=== PATIENT | female | born 1965 | race Caucasian/White ===

== ENCOUNTER 2020-07-14 08:24 | Outpatient (CLI) | payer OTHER, SELFPAY | END 2020-07-14 08:25 | disposition home or self-care (01) | LOC: ANHCOVIDVC 08:24 | PROVIDERS: PCP Obstetrics & Gynecology Gynecology | DX: Z23 Encounter for immunization (principal) | CPT/HCPCS: 0001A; 91300 ==

== ENCOUNTER 2020-08-04 08:04 | Outpatient (CLI) | payer OTHER, SELFPAY | END 2020-08-04 08:05 | disposition home or self-care (01) | LOC: ANHCOVIDVC 08:04 | PROVIDERS: PCP Obstetrics & Gynecology Gynecology | DX: Z23 Encounter for immunization (principal) | CPT/HCPCS: 0002A; 91300 ==

== ENCOUNTER 2021-05-09 13:45 | Outpatient (CLI) | payer OTHER, SELFPAY ==
--- NOTE | 2021-05-09 14:49 | ECG_ITS ---
Measurements Intervals [place] Rate: 74 P: 37 CT: 183 QRS: -15 QRSD: 98 T: 81 QT: 379 QTc: 422 Interpretive Statements SINUS RHYTHM EARLY PRECORDIAL R/S TRANSITION VOLTAGE CRITERIA FOR LVH MINIMAL Q WAVES- HIGH LATERAL LEADS BASELINE ARTIFACT- I, II, III, AVR, AVL, AVF, V4-V6 BORDERLINE ECG Electronically Signed On 05-09-2021 15:09:42 [employer] CONSULTANT by Erik Dubois D.O.
[2021-05-09 15:29] LABS: Basophils Absolute Auto 0.1 K/mm3 (0.0-0.1); Basophils Percent Auto 0.8 % (0.2-1.2); Eosinophils Absolute Auto 0.4 K/mm3 (0-0.3); Eosinophils Percent Auto 3.3 % (0-4.4); Hematocrit 42.1 % (37.0-47.0); Hemoglobin 13.1 g/dL (12.0-15.0); Immature Granulocyte Absolute 0.03 K/mm3 (0.00-0.031); Immature Granulocyte Percent A 0.2 % (0-0.5); Lymphocytes Absolute Auto 4.59 K/mm3 (0.9-3.2); Lymphocytes Percent Auto 35.7 % (18.3-44.2); Mean Corpuscular HGB Conc 31.1 g/dl (32-36); Mean Corpuscular Hemoglobin 26.6 pg (26-34); Mean Corpuscular Volume 85.4 fl (80-100); Mean Platelet Volume 9.9 fl (7.4-10.4); Monocytes Absolute Auto 0.9 K/mm3 (0.1-0.6); Monocytes Percent Auto 6.7 % (2.6-8.5); Neutrophils Absolute Auto 6.8 K/mm3 (1.3-6.7); Neutrophils Percent Auto 53.3 % (45.5-73.1); Platelet Count Result 317 k/mm3 (150-375); Red Blood Count 4.93 M/mm3 (4.2-5.4); Red Cell Distribution Width 14.6 % (11.5-14.5); White Blood Count 12.8 K/mm3 (4.5-10.0)
[2021-05-09 15:35] LABS: Anion Gap 7 mmol/L (8-16); Blood Urea Nitrogen 20 mg/dL (7-17); Calcium 8.9 mg/dL (8.4-10.2); Carbon Dioxide 31 mmol/L (22-30); Chloride 101 mmol/L (98-107); Estimated Glomerular Filt Rate 51; Glucose 97 mg/dL (65-110); Sodium 139 mmol/L (137-145)
[2021-05-09 20:38] LABS: Hemoglobin A1C 5.6 % (<5.7)
[2021-05-09 22:04] LABS: Urine Cotinine NEGATIVE
== END 2021-05-09 13:46 | disposition home or self-care (01) ==
LOC: ANHSURGERY 13:51
PROVIDERS: PCP Physician Assistant; Visit Provider Orthopaedic Surgery
DX: Z01.818 Encounter for other preprocedural examination (principal); M17.0 Bilateral primary osteoarthritis of knee
CPT/HCPCS: 80048; 80307; 82040; 83036; 85025; 86850; 86900; 86901; 87070; 93005

== ENCOUNTER 2021-05-10 09:32 | Outpatient (CLI) | payer OTHER, SELFPAY ==
[2021-05-10 10:12] LABS: Basophils Absolute Auto 0.1 K/mm3 (0.0-0.1); Eosinophils Absolute Auto 0.4 K/mm3 (0-0.3); Hematocrit 43.9 % (37.0-47.0); Hemoglobin 13.7 g/dL (12.0-15.0); Immature Granulocyte Absolute 0.03 K/mm3 (0.00-0.031); Immature Granulocyte Percent A 0.2 % (0-0.5); Lymphocytes Absolute Auto 4.07 K/mm3 (0.9-3.2); Lymphocytes Percent Auto 32.8 % (18.3-44.2); Mean Corpuscular HGB Conc 31.2 g/dl (32-36); Mean Corpuscular Hemoglobin 26.9 pg (26-34); Mean Corpuscular Volume 86.1 fl (80-100); Monocytes Absolute Auto 0.7 K/mm3 (0.1-0.6); Monocytes Percent Auto 5.4 % (2.6-8.5); Neutrophils Absolute Auto 7.1 K/mm3 (1.3-6.7); Neutrophils Percent Auto 57.6 % (45.5-73.1); Platelet Count Result 338 k/mm3 (150-375); Red Cell Distribution Width 14.6 % (11.5-14.5); White Blood Count 12.4 K/mm3 (4.5-10.0)
[2021-05-10 10:21] LABS: Alanine Aminotransferase 21 U/L (4-35); Albumin Level 4.2 g/dL (3.5-5.1); Alkaline Phosphatase 81 U/L (38-126); Anion Gap 5 mmol/L (8-16); Aspartate Amino Transferase 28 U/L (14-36); Bilirubin,Total 0.5 mg/dL (0.2-1.3); Blood Urea Nitrogen 18 mg/dL (7-17); Carbon Dioxide 30 mmol/L (22-30); Chloride 105 mmol/L (98-107); Estimated Glomerular Filt Rate 57; Glucose 101 mg/dL (65-110); Potassium 3.9 mmol/L (3.4-5.0); Sodium 140 mmol/L (137-145)
== END 2021-05-10 09:33 | disposition home or self-care (01) ==
LOC: ANHLAB 09:35
PROVIDERS: PCP Physician Assistant; Visit Provider Physician Assistant
DX: D72.829 Elevated white blood cell count, unspecified (principal); E87.6 Hypokalemia
CPT/HCPCS: 36415; 80053; 85025

== ENCOUNTER 2021-05-15 08:24 | Outpatient (RCR) | payer OTHER, SELFPAY ==
--- NOTE | 2021-05-15 09:21 | PCPTNOTE ---
Tania was here today for pre-operative education for TKA currently scheduled for 05/17/21. We discussed expectations for pre-op/post-op while in the hospital, expectations for hospital stay, physical and occupational therapy while in the hospital and outpatient physical therapy. She demonstrated and stated understanding. We discussed and she demonstrated pre and post operative exercises for TKA. She came in with the Total Knee Education book and stated she had read the book and was already doing the exercises. She had no further questions.
== END 2021-05-15 16:17 | disposition home or self-care (01) ==
LOC: ANHPT 08:24
PROVIDERS: PCP Physician Assistant; Referring Provider Orthopaedic Surgery; Visit Provider Orthopaedic Surgery
DX: M17.11 Unilateral primary osteoarthritis, right knee (principal)
CPT/HCPCS: 99199

== ENCOUNTER 2021-05-17 01:47 | Day surgery (SDC) | payer OTHER, SELFPAY ==
[2021-05-09 14:08] VITALS: BP 146/97; PULSE 74; RESP 16; TEMP 37.2; O2SAT 96; BMI 34.6
--- NOTE | 2021-05-09 14:20 | PC.NURSE ---
Report to the Outpatient Waiting Room, entrance under the green pavilion located off [facility], at time __10:00AM___ on date _05/17/21____. OR Time: ___12:00PM . - You will be asked a series of questions to screen for COVID 19 for your protection. - A mask is required within the hospital. - No visitors are allowed at this time. Preoperative COVID Testing Requirements: No COVID Test needed if: (proof is required; if not received patient will have Rapid Test prior to entry) - Patient has received COVID Vaccine at least 14 days prior to procedure date or - Patient has positive COVID test result within last 90 days of surgery date. COVID Test needed if above criteria is not met If not COVID vaccinated a COVID test must be conducted within 72 hours of surgery and patient is asked to isolate self from time of testing until procedure. You will go to the [facility] for your COVID testing. The [facility] Testing site is located at the corner of [address] [facility]. You will only be called if COVID results are positive and your surgeon may reschedule your elective surgery date. Patients may have clear liquids (water, carbonated beverages, clear teas, apple juice) until 3 hours prior to surgery with a maximum of 20 ounces. - No food from midnight until time of surgery - Infants may have breast milk until 4 hours before surgery, formula 6 hours prior to surgery. - Children will be allowed to drink immediately following surgery. If applicable, please bring a bottle or sippy cup to assist with drinking. Juice, water, soda, and popsicles are readily available. For infants on formula, please bring formula the day of surgery. Pacifiers are allowed. Take the following medications with a SIP of water the morning of surgery: ___BUPROPION, LEVOTHYROXINE, PAROXETINE Medications to discontinue per physician HOLD ALEVE (ALL NSAIDS) 7 DAYS PRE-OP Date to take last dose___05/10/21 Please no make-up, nail malawian, hairspray, perfume, deodorant, or body powder the day of surgery. No jewelry (including any body piercings) or valuables the day of surgery, leave them at home. Please take a shower or bath the night before, or the morning of, surgery with an antibacterial soap. Wear comfortable, loose fitting clothing. Children are encouraged to wear pajamas. - Jewelry must be removed prior to entering the operating room. Rings and piercings that are not removed may be cut off. - The hospital will not accept responsibility for valuables. - Please leave all valuables, including medications, at home the day of surgery. If you are going home after surgery, a licensed auto haulaway driver must drive you home. - NO public transportation without another adult. - We recommend that an adult stay with you for 24 hours following discharge. - We also recommend that you do not drive, make important decision, drink alcoholic beverages, or take any drugs that were not prescribed by your health care provider for at least 24 hours after your discharge time. For Pediatric surgeries, we recommend two adults accompany the child home (only one inside the building at this time). Follow any additional instructions given to you from your surgeon. Telephone instructions given to _PATIENT and asked if any additional questions and then verbalized understanding. Patient advised to call surgeon office or pre surgery nurse liaison [phone] if any additional questions.
--- NOTE | 2021-05-16 16:11 | WPDANESEPPF ---
Anes - Initial Pre Proc Eval Procedure: Operation Date: 05/17/21 12:00 Proposed Procedures p Right Total Knee Arthroplasty, Left Knee Cortisone Injection - Andrea Hester MD Date/Time: 05/16/21 16:11 Surgeon: Andrea Hester MD Pre Op Diagnosis: severe OA bilat knees Patient Data Age: 55 Gender: F Height: 1.73 m Weight: 103.3 kg Last Vital Signs Temp 37.2 C 05/09/21 14:08 Pulse 74 05/09/21 14:08 Resp 16 05/09/21 14:08 BP 146/97 H 05/09/21 14:08 Pulse Ox 96 05/09/21 14:08 Allergies Allergy/AdvReac Type Severity Reaction Status Date / Time erythromycin base Allergy Unknown Hives Verified 05/17/21 10:16 KATARZYNA Inhibitors AdvReac ABD PAIN, Verified 05/17/21 10:16 N/V Home Medications Medication Instructions Recorded Confirmed Type amlodipine 10 mg PO HS 05/09/21 05/09/21 History bupropion HCl 300 mg PO QAM 05/09/21 05/09/21 History levothyroxine [Synthroid] 137 mcg PO QAM 05/09/21 05/09/21 History montelukast 10 mg PO DAILY 05/09/21 05/09/21 History naproxen sodium [Aleve] 440 mg PO BID 05/09/21 05/09/21 History paroxetine HCl 50 mg PO QAM 05/09/21 05/09/21 History pravastatin 40 mg PO DAILY 05/09/21 05/09/21 History Patient hx anesthesia problems: none Family hx anesthesia problems: none Results Review: All pre-operative results and documents have been reviewed as part of the pre-operative evaluation. [facility] Past Medical History Medical History Depression Hyperlipidemia Hypothyroidism Obesity TABITHA (obstructive sleep apnea) Osteoarthritis Family History Family History Other Family history of arthritis Family history of gout Social History Social History Smoking status: Never smoker Alcohol intake: current Substance use: never Living arrangements: with family Additional living arrangements comments: DAUGHTER Spiritual care concerns: No Anes - Eval Final PreProcedure Day of Procedure 05/16/21 16:11 Patient weight: obese Heart: regular rate and rhythm Lungs: clear to auscultation and normal air movement Airway: Mallampati scale class II Neurological: alert and oriented Last oral intake: >/= 8 hours ASA classification: III Emergent: no Anesthetic plan: proceed Anesthesia type and monitoring: general LMA Results Review: All pre-operative results and documents have been reviewed as part of the pre-operative evaluation. Informed Consent: The patient's anesthetic plan and its attendant risks and benefits were discussed with the patient/family/POA. Questions were solicited and answers provided to the satisfaction of the patient/family/POA.
[2021-05-17] VITALS (13 sets, daily range): BP systolic 120–170; BP diastolic 81–100; PULSE 86–104; RESP 12–18; TEMP 36.2–36.8; O2SAT 91–98
--- NOTE | ~2021-05-17 | XR_ITS ---
EXAMINATION: XR knee RT 2V DATE: 05/17/2021 16:42 INDICATION: Postoperative evaluation following right total knee arthroplasty. TECHNIQUE: Anteroposterior and lateral views of the right knee were obtained. COMPARISON: None. FINDINGS: Right total knee arthroplasty without patellar resurfacing appears well seated and in near anatomic a lignment. No fractures identified. Expected postoperative subcutaneous and intra-articular gas. IMPRESSION: 1. Right total knee arthroplasty, negative for postoperative purposes. Reviewed, dictated and finalized at location A. OPATHOLOGIST
--- NOTE | 2021-05-17 08:10 | PM.IMHP ---
H&P: HPI History of Present Illness Date/Time: 05/17/21 08:10 55-year-old female patient of Dr. Patton who presents today for right total knee arthroplasty with cortisone injection in the left knee. She has been having pain in both her knees for years. She had cortisone injections in both her knees in December which gave her very minimal relief. She has been taking naproxen 440 mg twice a year for a year. She has not had improvement from nonsurgical treatment. She has severe patellofemoral arthritis in both of her knees. She feels she is ready proceed with total knee arthroplasty rather continue nonsurgical treatment. <TIA Sales - Last Filed: 05/17/21 08:19> Chief Complaint: Bilateral knee DJD <TIA Sales - Last Filed: 05/17/21 08:19> Review of Systems Review of Systems: All systems reviewed & are unremarkable except as noted in HPI and below <TIA Sales - Last Filed: 05/17/21 08:19> [facility] Past Medical History Medical History: Medical History Depression Hyperlipidemia Hypothyroidism Obesity TABITHA (obstructive sleep apnea) Osteoarthritis <TIA Sales - Last Filed: 05/17/21 08:19> Family History Family History: Family History Other Family history of arthritis Family history of gout <TIA Sales - Last Filed: 05/17/21 08:19> Social History Social History: Social History Smoking status: Never smoker Alcohol intake: current Substance use: never Living arrangements: with family Additional living arrangements comments: DAUGHTER Spiritual care concerns: No <TIA Sales - Last Filed: 05/17/21 08:19> Meds Home Medications and Allergies Home medications: Home Medications Medication Instructions Recorded Confirmed Type amlodipine 10 mg PO HS 05/09/21 05/17/21 History bupropion HCl 300 mg PO QAM 05/09/21 05/17/21 History levothyroxine [Synthroid] 137 mcg PO QAM 05/09/21 05/17/21 History montelukast 10 mg PO DAILY 05/09/21 05/17/21 History naproxen sodium [Aleve] 440 mg PO BID 05/09/21 05/17/21 History paroxetine HCl 50 mg PO QAM 05/09/21 05/17/21 History pravastatin 40 mg PO DAILY 05/09/21 05/17/21 History <TIA Sales - Last Filed: 05/17/21 08:19> Allergies/Adverse reactions: Allergies Allergy/AdvReac Type Severity Reaction Status Date / Time erythromycin base Allergy Unknown Hives Verified 05/17/21 10:16 KATARZYNA Inhibitors AdvReac ABD PAIN, Verified 05/17/21 10:16 N/V <TIA Sales - Last Filed: 05/17/21 08:19> Exam Narrative: 55-year-old female alert pleasant. She is 5 ft 7 to 132 lb. Her BMI is 36. right knee range motion is from 10-90. Hip range motion is full without discomfort. She has normal quad strength. Normal stability in the knee. Mild effusion. 2+ dorsalis pedis and posterior tibial artery pulse. No edema in either lower extremity. Has moderate severe pain with patellofemoral grind. Minimal tenderness over the medial joint line. No lateral joint line tenderness. <TIA Sales - Last Filed: 05/17/21 08:19> Resp: Auscultation: clear to auscultation bilaterally <TIA Sales - Last Filed: 05/17/21 08:19> Cardio: Rate: regular rate <TIA Sales - Last Filed: 05/17/21 08:19> Rhythm: regular rhythm <TIA Sales - Last Filed: 05/17/21 08:19> Assessment and Plan Additional Plan 55-year-old female who has advanced patellofemoral arthritis in both her knees. Her right 1 is more symptomatic than left at this point. She has not improved with nonsurgical treatment and feels at this point she is ready to proceed with total knee arthroplasty. Surgical procedure as well as the risks and complications were discussed in detail and all questions were answered and we will proceed. P
[2021-05-17] MEDS: LACTATED RINGERS 1,000 ML 30 ML IV CONT ×2 (10:23→16:30)
[2021-05-17] MEDS: ACETAMINOPHEN 500 MG TABLET 1000 MG PO ×3 (10:26→23:29)
[2021-05-17] MEDS: TRANEXAMIC ACID 1,000MG/ISO100 1,000 MG/100 ML BAG 200 MG IVPB (12:15)
--- NOTE | 2021-05-17 12:19 | WPDHPUPDATE1 ---
History and Physical Update Update Date/Time: 05/17/21 12:19 History and Physical has been reviewed, including an updated exam of the patient. There are NO changes in the patient's condition. Risks, benefits, and alternatives have been discussed and questions answered. Patient agrees to proceed with procedure.
[2021-05-17] MEDS: ceFAZolin 2 GM/D5W 50 ML 2 GM/50 ML BAG IVPB (12:47)
[2021-05-17] MEDS: ceFAZolin SODIUM 1 GM VIAL 3 GM IRRIGATION (13:34)
[2021-05-17] MEDS: methylPREDNISolone ACETATE 80 MG/ML VIAL IM (13:35)
[2021-05-17] MEDS: TRANEXAMIC ACID 1,000 MG/10 ML AMPUL 1000 MG IV PUSH (15:38)
[2021-05-17] MEDS: ceFAZolin SODIUM 1 GM VIAL IV PUSH (15:40)
--- NOTE | 2021-05-17 16:15 | W.PM.PROC2 ---
Procedure Note - Detailed Date of Procedure 05/17/21 Pre-op Diagnosis severe OA bilat knees Post-op Diagnosis same Procedure Performed Right total knee arthroplasty. Cortisone injection left knee Surgeon Andrea Hester MD Pipelines Superintendent Larissa Anesthesia general Description of Procedure Patient was brought to the operating room and general anesthesia was administered. She received 2 g Ancef weight based vancomycin and a g of tranexamic acid preoperatively. Left knee was prepped with the chlorhexidine alcohol wipes and injected with 80 mg of Depo-Medrol and 3 cc 1% lidocaine without difficulty. The right knee was prepped draped usual fashion. The limb was exsanguinated tourniquet elevated to 250 mmHg. A 7 in longitudinal midline incision was used the vastus medialis splitting approach utilized splitting the vastus medialis at the superior pole of the patella. Suprapatellar and infrapatellar fat pads were excised and a quadriceps synovectomy carried out. The patella as we knew was extremely arthritic. Very large fractured lateral last 2 fights were initially removed. The lateral facet was severely scalloped and the thickness of the patella inferior quadrant lateral of the patella measured only 7 mm in thickness. It measured 10 mm at the central apical ridge which was warned. The patella patella centrally had the shape of a saucer with its concavity matching the concavity of the remaining worn lateral trochlear ridge. It Was clearly too thin to resurface. A lateral facetectomy was performed a guide marium was inserted down the femoral canal after aspiration of canal contents using the 5 degree valgus cutting bushing 9 mm of bone removed the distal femur. Next the tibial plateau was cut. Removed about 5 mm of bone from the medial tibial plateau which gave exposed bone surface entire medial and lateral plateaus. Meniscal remnants were excised the PCL was recessed. At 90? of flexion the medial space measured 8 mm the lateral space 12 mm. We tried to draw Whitesides line on the femur but it was quite difficult to estimate the proper orientation due to the severe lateral trochlea and trochlear groove where. We set the sizing guide to 5? of external rotation and posterior referencing pinholes were placed. The femur was cut to a 65. This overhung medial-lateral about a mm on each side but 62.5 was going to notch significantly less flexed the femur and she had osteoporosis. Osteoporosis was noteworthy throughout the distal femur and the tibial plateau cut. With the 10 CR trial there was appropriate balance at 90? with about a mm of medial and 2 mm lateral opening but we lacked 10? of extension. An additional 2 mm of bone removed from the distal femur chamfer cuts revisited. Trial fit better with only about a mm of overhang now. The tibial plateau was prepped for a size 67 tibia. The 71 tibial trial was go did overhang at proper rotation this was punched at proper rotation referenced off the anterior tibial plateau medial 1/3 tibial tubercle in the 2nd metatarsal ray. Alignment was reconfirmed. On trialing with the 10 insert stability at 90? was excellent and gravity flexion was to 140. The knee almost came out to full extension could it had a fairly positive bounce test. There is 3 mm lateral opening 1 2 mm of medial opening. Posterior capsule released from the femur was then performed posterior femoral condylar bone removed. And on retrialing the knee came out to full extension with a negative bounce I do. In this position there is a 1-2 mm of medial opening 2-3 mm lateral opening. Lug holes were drilled in the femur step drill was used to make multiple perforations in the tibial plateau and distal femur the bony surfaces were thoroughly irrigated and dried. The 2 batches of methylmethacrylate 1 contained gentamicin powder mixed in the applied to the 67 tibial component the 65 CR femoral component cement was applied tibial plateau pressurized in the
[2021-05-17] MEDS: fentaNYL CITRATE INJ (*CRX) 100 MCG/2 ML VIAL 25 MCG IV PUSH ×6 (16:55→17:31)
[2021-05-17] MEDS: MORPHINE SULFATE (*CRX) 2 MG/ML INJ 1 MG IV PUSH (17:58)
[2021-05-17] MEDS: oxyCODONE HCL (*CRX) 5 MG TAB IR PO ×2 (17:59→20:42)
[2021-05-17] MEDS: SENNA/DOCUSATE SODIUM TABLET 2 TAB PO (17:59)
--- NOTE | 2021-05-17 18:12 | ADMGEN ---
This patient, Tania Prince, was admitted to [facility]. Patient/family oriented to hospital policies and general routines including ID bracelet, bed and alarms, visiting hours, pain management, procedures, bathroom and other care routines, personal items, smoking policy, room service/diet, and visiting hours. Information on how to activate the Rapid Response Team has been discussed. Patient/Family are encouraged to report perceived risks to care and to ask questions if they do not understand what they are told or what they should do.
[2021-05-17] MEDS: amLODIPine BESYLATE 5 MG TABLET 10 MG PO (20:41)
[2021-05-17] MEDS: SODIUM CHLORIDE 0.9% IV 1,000 ML 125 ML IV CONT (20:41)
[2021-05-18] VITALS: BP 140/84; PULSE 86; RESP 18; TEMP 36.4; O2SAT 93
[2021-05-18] MEDS: oxyCODONE HCL (*CRX) 5 MG TAB IR PO ×4 (01:09→08:12)
[2021-05-18 02:16] VITALS: RESP 18
[2021-05-18 04:00] VITALS: BP 144/78; PULSE 79; RESP 18; TEMP 36.4; O2SAT 93
[2021-05-18] MEDS: ACETAMINOPHEN 500 MG TABLET 1000 MG PO ×2 (05:22→12:05)
[2021-05-18 05:49] LABS: Basophils Percent Auto 0.1 % (0.2-1.2); Hematocrit 38.6 % (37.0-47.0); Hemoglobin 12.2 g/dL (12.0-15.0); Immature Granulocyte Absolute 0.17 K/mm3 (0.00-0.031); Immature Granulocyte Percent A 0.7 % (0-0.5); Lymphocytes Percent Auto 8.6 % (18.3-44.2); Mean Corpuscular HGB Conc 31.6 g/dl (32-36); Mean Corpuscular Hemoglobin 26.5 pg (26-34); Mean Corpuscular Volume 83.9 fl (80-100); Mean Platelet Volume 10.2 fl (7.4-10.4); Monocytes Absolute Auto 1.3 K/mm3 (0.1-0.6); Monocytes Percent Auto 5.7 % (2.6-8.5); Neutrophils Absolute Auto 19.7 K/mm3 (1.3-6.7); Neutrophils Percent Auto 84.9 % (45.5-73.1); Platelet Count Result 321 k/mm3 (150-375); Red Cell Distribution Width 14.9 % (11.5-14.5); White Blood Count 23.2 K/mm3 (4.5-10.0)
[2021-05-18 06:04] LABS: Vitamin D 25 Hydroxy 25.1 ng/mL
[2021-05-18 06:16] VITALS: RESP 18
[2021-05-18] MEDS: LEVOTHYROXINE SODIUM 112 MCG, LEVOTHYROXINE SODIUM 25 MCG 137 MCG PO (06:33)
--- NOTE | 2021-05-18 07:16 | PM.PNORT ---
Subjective Subjective Date/Time Seen: 05/18/21 07:16 Postop day 1 patient is alert pleasant. Pain is controlled. She was up multiple times overnight to the restroom and doing well. Dressing is dry. Neurovascular she is intact. Morning labs are still pending. Her vitamin D has been done and it was 25 and it is low we will supplement this with high-dose vitamin-D weekly. Patient has been afebrile vital signs been stable. Plan to have patient work with physical therapy today if she continues to do well we will plan on discharging home later this afternoon once her IV antibiotics are finished. Objective Data Vital Signs Vital Signs: Vital Signs - 24 hr 05/17/21 10:56 05/17/21 16:30 05/17/21 16:45 Temperature 36.2 C L 36.8 C Pulse Rate 86 104 H 99 Respiratory Rate 16 18 12 Blood Pressure 151/100 H 170/95 H 170/95 H Pulse Oximetry 98 96 96 05/17/21 17:00 05/17/21 17:05 05/17/21 17:15 Temperature Pulse Rate 96 97 Respiratory Rate 12 14 Blood Pressure 142/86 H 147/83 H Pulse Oximetry 97 94 93 05/17/21 17:30 05/17/21 17:43 05/17/21 17:45 Temperature 36.7 C Pulse Rate 94 92 92 Respiratory Rate 12 16 14 Blood Pressure 138/91 H 139/95 H 136/90 Pulse Oximetry 97 96 97 05/17/21 18:00 05/17/21 18:30 05/17/21 19:30 Temperature 36.7 C 36.4 C L 36.7 C Pulse Rate 89 95 95 Respiratory Rate 14 15 18 Blood Pressure 133/92 H 120/91 H 131/81 Pulse Oximetry 97 91 92 05/17/21 22:16 05/18/21 00:00 05/18/21 02:16 Temperature 36.4 C L Pulse Rate 86 Respiratory Rate 18 18 18 Blood Pressure 140/84 Pulse Oximetry 93 05/18/21 04:00 05/18/21 06:16 Temperature 36.4 C L Pulse Rate 79 Respiratory Rate 18 18 Blood Pressure 144/78 H Pulse Oximetry 93 Intake/Output Intake/Output: Intake & Output 05/15/21 05/16/21 05/17/21 05/18/21 23:59 23:59 23:59 23:59 Intake Total 1300 1000 Balance 1300 1000 Meds/Results Medications: Active Medications Generic Name Dose Route Start Last Admin Trade Name Freq PRN Reason Stop Dose Admin Acetaminophen 1,000 mg 05/17/21 18:00 05/18/21 05:22 Acetaminophen 500 Mg Tablet PO 1,000 mg Q6HR CARISSA Administration Amlodipine Besylate 10 mg 05/17/21 21:00 05/17/21 20:41 Amlodipine Besylate 5 Mg Tablet PO 10 mg HS CARISSA Administration Apixaban 2.5 mg 05/18/21 09:00 Apixaban 2.5 Mg Tablet PO Q12HR CARISSA Bupropion HCl 300 mg 05/18/21 09:00 Bupropion Hcl Xl (24 Hr) 150 Mg Tabcr PO QAM CAIRSSA Celecoxib 200 mg 05/18/21 08:00 Celecoxib 200 Mg Capsule PO DAILY@0800 CARISSA Cephalexin HCl 500 mg 05/18/21 18:00 Cephalexin 500 Mg Capsule PO Q6HR CARISSA Vancomycin HCl 1,000 mg in 250 mls @ 250 mls/hr 05/17/21 22:00 05/17/21 22:46 Vancomycin 1,000 Mg/D5w 250 Ml IVPB 05/18/21 10:59 250 mls/hr Q12H CARISSA Administration Cefazolin Sodium 1 gm in 50 mls @ 100 mls/hr 05/17/21 20:00 05/18/21 03:57 Ancef 1 Gm/D5w 50 Ml Pm IVPB 05/18/21 12:29 100 mls/hr Q8H CARISSA Administration Levothyroxine Sodium 112 mcg/ 137 mcg 05/18/21 06:30 05/18/21 06:33 Levothyroxine Sodium 25 mcg PO 137 mcg DAILY@0630 CARISSA Administration Miscellaneous Information 1 each 05/17/21 00:01 Paxil Er Is Nonformulary. We Stock Regular Release Paxil. Can Patient Use Home Supply? XX 06/16/21 00:00 [facility] Montelukast Sodium 10 mg 05/18/21 09:00 Montelukast Sodium 10 Mg Tablet PO DAILY CARISSA Naloxone HCl 0.1 mg 05/17/21 16:29 Naloxone Hcl 0.4 Mg/Ml Vial IV PUSH Q2M PRN Opiate Reversal Non-Formulary Medication 50 mg 05/18/21 09:00 Paroxetine Hcl PO 06/17/21 08:59 QAM CARISSA Oxycodone HCl 5 mg 05/17/21 17:00 05/18/21 05:22 Oxycodone Hcl (*Crx) 5 Mg Tab Ir PO 5 mg Q4HR CARISSA Administration Oxycodone HCl 5 mg 05/17/21 16:29 05/18/21 02:44 Oxycodone Hcl (*Crx) 5 Mg Tab Ir PO 5 mg Q4H PRN Administration Pain Rated 4-10 Pravastatin Sodium 40 mg
--- NOTE | 2021-05-18 07:21 | PM.DS ---
DS: Admitting Diagnosis Discharge Date 05/18 Admitting Diagnosis Right knee DJD DS: Summary Hospital Course Hospital Course: Stable Time Spent with Patient Time attestation: Total time spent providing and/or coordinating discharge services: 55-year-old female who underwent right total knee arthroplasty on 05/17. Underwent the procedure without complications. Postoperatively patient has been afebrile vital signs been stable neurovascularly she is intact. She is weight-bearing as tolerated. She has a Mepilex dressing over her knee which is dry. She was up multiple times the day of surgery to the restroom. She also worked with physical therapy that day and is doing well. Pain is well controlled with oxycodone scheduled Tylenol as well as Celebrex 200 mg daily. Patient is doing well and will plan on discharging home on 05/18. Patient was advised to keep leg elevated at home prevent swelling but also to exercise on a regular basis. She has outpatient therapy starting next Saturday. Her vitamin-D was checked and it was low at 25 we will supplement this with 77613 units weekly. Patient is also going home on a ten-day course of Keflex. Patient was advised any questions or concerns when she goes home she should call the office otherwise we will see her at her appointment date. DS: Data Data Completed and Pending Labs on day of discharge: Labs from last 24 hours 05/18/21 05/18/21 05/18/21 05:16 05:16 05:16 WBC Pending RBC Pending Hgb Pending Hct Pending MCV Pending MCH Pending MCHC Pending RDW Pending Plt Count Pending MPV Pending Immature Gran % (Auto) Pending Neut % (Auto) Pending Lymph % (Auto) Pending Clay % (Auto) Pending Eos % (Auto) Pending Baso % (Auto) Pending Lymph # (Auto) Pending Clay # (Auto) Pending Eos # (Auto) Pending Baso # (Auto) Pending Abs Immat Gran (auto) Pending Absolute Neuts (auto) Pending Absolute Nucleated RBC Pending Nucleated RBC % Pending Sodium Pending Potassium Pending Chloride Pending Carbon Dioxide Pending Anion Gap Pending BUN Pending Creatinine Pending Estim Creat Clear Calc Pending Estimated GFR Pending Glucose Pending Calcium Pending Vitamin D 25-Hydroxy 25.1 Discharge Plan Discharge Patient Disposition: Home, Self-Care Discharge Instructions: ANDREA HESTER M.D [facility] [address] [place] [address] POST-OPERATIVE DISCHARGE INSTRUCTIONS TOTAL KNEE ARTHROPLASTY 1. When resting, lie on back with leg elevated above hear to minimize swelling. Significant swelling could indicate a blood clot and if this occurs call the office (or go to the ER) to have a venous ultrasound. 2. Do exercise 5 times a day. 3. Do not sit with leg down except for meals. 4. Wound Care: Nursing will give additional dressings at discharge. Patient to change dressing at home 1 week from surgery, then maintain until seen in office. 5. May shower with dressing in place. . Stand Alone Forms: General Discharge Instructions Follow-up/Referrals: Andrea Hester MD [Physician] - Keep Reg. Scheduled Appt. Discharge Medications: New acetaminophen 500 mg Tablet 1,000 mg PO Q6HR Qty: 90 RF: 0 Eliquis 2.5 mg Tablet 2.5 mg PO Q12HR Qty: 27 RF: 0 celecoxib [Celebrex] 200 mg Capsule 200 mg PO DAILY@0800 Qty: 60 RF: 0 sennosides-docusate sodium [Senokot-S] 8.6-50 mg Tablet 2 tab PO BID Qty: 60 RF: 0 cephalexin 500 mg Capsule 500 mg PO Q6HR Qty: 40 RF: 0 ergocalciferol (vitamin D2) [Vitamin D2] 1,250 mcg (50,000 unit) Capsule 50,000 unit PO WEEKLY Qty: 12 RF: 0 oxycodone 5 mg Tablet 5 mg PO Q4HR Qty: 40 RF: 0 Continued levothyroxine [Synthroid] 137 mcg tablet 137 mcg PO QAM RF: 0 pravastatin 40 mg tablet 40 mg PO DAILY RF: 0 amlodipine 10 mg tablet 10
[2021-05-18 08:09] VITALS: BP 132/88; PULSE 81; RESP 16; TEMP 36.5; O2SAT 96
[2021-05-18] MEDS: CELECOXIB 200 MG CAPSULE PO (08:12)
[2021-05-18] MEDS: SENNA/DOCUSATE SODIUM TABLET 2 TAB PO (08:12)
[2021-05-18] MEDS: MONTELUKAST SODIUM 10 MG TABLET PO (08:12)
[2021-05-18] MEDS: buPROPion HCL XL (24 HR) 150 MG TABCR 300 MG PO (08:12)
[2021-05-18] MEDS: PRAVASTATIN SODIUM 20 MG TABLET 40 MG PO (08:12)
[2021-05-18] MEDS: APIXABAN 2.5 MG TABLET PO (08:12)
[2021-05-18 08:15] LABS: Anion Gap 10 mmol/L (8-16); Blood Urea Nitrogen 14 mg/dL (7-17); Calcium 8.2 mg/dL (8.4-10.2); Carbon Dioxide 25 mmol/L (22-30); Chloride 104 mmol/L (98-107); Estimated CRCL calculation 84 ml/min; Estimated Glomerular Filt Rate > 60; Glucose 163 mg/dL (65-110); Potassium 3.4 mmol/L (3.4-5.0); Sodium 139 mmol/L (137-145)
--- NOTE | 2021-05-18 09:10 | WPDANESPN ---
Anes - Prog Note Post-Op Date/Time: 05/18/21 09:10 Cardiovascular status: normal Respiratory status: normal Airway patency: baseline Mental status: baseline Post-Op hydration status: normal Vital Signs: Last Vital Signs Temp 36.5 C 05/18/21 08:09 Pulse 81 05/18/21 08:09 Resp 16 05/18/21 08:09 BP 132/88 05/18/21 08:09 Pulse Ox 96 05/18/21 08:09 Pain Score (VAS): 0 I/O: Intake & Output 05/17/21 05/18/21 05/18/21 23:59 07:59 15:59 Intake Total 250 1000 240 Balance 250 1000 240 Laboratory Tests 05/18/21 05:16 05/18/21 05:16 05/18/21 05/18/21 05/18/21 05:16 05:16 05:16 WBC 23.2 H RBC 4.60 Hgb 12.2 Hct 38.6 MCV 83.9 MCH 26.5 MCHC 31.6 L RDW 14.9 H Plt Count 321 MPV 10.2 Immature Gran % (Auto) 0.7 H Neut % (Auto) 84.9 H Lymph % (Auto) 8.6 L Mccracken % (Auto) 5.7 Eos % (Auto) 0.0 Baso % (Auto) 0.1 L Lymph # (Auto) 2.00 Mccracken # (Auto) 1.3 H Eos # (Auto) 0.0 Baso # (Auto) 0.0 Abs Immat Gran (auto) 0.17 H Absolute Neuts (auto) 19.7 H Absolute Nucleated RBC 0.0 Nucleated RBC % 0.0 Sodium 139 Potassium 3.4 Chloride 104 Carbon Dioxide 25 Anion Gap 10 BUN 14 Creatinine 0.80 Estim Creat Clear Calc 84 Estimated GFR > 60 Glucose 163 H Calcium 8.2 L Vitamin D 25-Hydroxy 25.1 Post-procedural complaints: none Patient Feedback: Patient satisfied with anesthetic care.
[2021-05-18] MEDS: ERGOCALCIFEROL 50,000 UNIT CAPSULE 50000 UNITS PO (09:50)
== END 2021-05-18 12:56 | disposition home or self-care (01) ==
LOC: ANHSURGERY 09:51 → ANHSUROVER 18:06
PROVIDERS: PCP Physician Assistant; Visit Provider Orthopaedic Surgery
PROC: (CPT 27447; principal; 2021-05-17 12:00)
DX: M17.0 Bilateral primary osteoarthritis of knee (principal); M81.0 Age-related osteoporosis without current pathological fracture; Z79.01 Long term (current) use of anticoagulants; F32.9 Major depressive disorder, single episode, unspecified; E03.9 Hypothyroidism, unspecified; E78.5 Hyperlipidemia, unspecified; G47.33 Obstructive sleep apnea (adult) (pediatric); M19.90 Unspecified osteoarthritis, unspecified site; E66.9 Obesity, unspecified; Z68.33 Body mass index [BMI] 33.0-33.9, adult
CPT/HCPCS: 20610; 27447; 36415; 73560; 80048; 82306; 85025; 97110; 97116; 97161; 97165; 97530; A9270; C1713; C1776; J0171; J0690; J1030; J1040; J1100; J1170; J2250; J2270; J2405; J2704; J2795; J3010; J3370; J7030; J7120

== ENCOUNTER → 2022-04-19 14:28 | Outpatient (CLI) | payer OTHER, SELFPAY ==
--- NOTE | ~2022-04-19 | MM_ITS ---
EXAMINATION: MM screening [facility] BI w eben HISTORY: Screening mammogram TECHNIQUE: Craniocaudal and mediolateral oblique 3-D tomosynthesis images were obtained and synthetic 2-D images were generated. CAD analysis was submitted and interpreted. COMPARISON: 02/28/2019, 02/12/2017, 09/06/2014 BREAST PARENCHYMAL COMPOSITION: The breasts are heterogeneously dense, which may obscure small masses . FINDINGS: No suspicious mass, calcification, or architectural distortion are identified in either aroldo ast to suggest malignancy. There has been no suspicious interval change. IMPRESSION: 1. No mammographic evidence of malignancy. 2. Recommend routine screening mammography in one year. BI-RADS Category 1: Negative Reviewed, dictated and finalized at location A. PLUMBER
--- NOTE | ~2022-04-19 | DEXA_ITS ---
Bone Density Report Name: KAYLA TATE Age: 56 Sex: Female Ethnicity: White Date of : 1965 Indication: postmenopausal; screening for osteoporosis; Referring Provider: Ngozi, Macy Study: Bone densitometry was performed. Exam Date: April 19, 2022 Accession number: [id number] Bone Density: Region BMD T-score Z-score Classification AP Spine (L1-L4) 0.981 -0.6 0.7 Normal Femoral Neck (Left) 0.704 -1.3 -0.1 Osteopenia Total Hip (Left) 0.946 0.0 0.9 Normal Femoral Neck (Right) 0.675 -1.6 -0.3 Osteopenia Total Hip (Right) 0.860 -0.7 0.2 Normal Total Hip Mean 0.903 -0.4 0.6 Normal World Health Organization criteria for BMD impression classify patients as: Normal (T-score at or above -1.0), Osteopenia (T-score between -1.0 and -2.5), or Osteoporosis (T-score at or below -2.5). 10-year Fracture Risk(1): Major Osteoporotic Fracture 7.1% Hip Fracture 0.6% Reported Risk Factors: [place] (), Neck BMD=0.675, BMI=36.2 (1) FRAX(R) Version 3.08. Fracture probability calculated for an untreated patient. Fracture probability may be lower if the patient has received treatment. Previous Exams: Region Exam Age BMD T-score BMD Change BMD Change Date g/cm2 vs Baseline vs Previous AP Spine(L1-L4) 04/19/2022 56 0.981 -0.6 -0.031 0.007 03/16/2019 53 0.974 -0.7 -0.039 -0.039 09/06/2014 49 1.013 -0.3 Total Hip(Left) 04/19/2022 56 0.946 0.0 -0.045 -0.003 03/16/2019 53 0.949 0.1 -0.042 -0.042 09/06/2014 49 0.991 0.4 Total Hip(Right) 04/19/2022 56 0.860 -0.7 -0.100 -0.103* 03/16/2019 53 0.963 0.2 0.003 0.003 09/06/2014 49 0.961 0.2 *Denotes significance at 95% confidence level, LSC for AP Spine = 0.022 g/cm2, LSC for Total Hip = 0.027 g/cm2 Clinical Information Provided by Patient: Has used the following medications: Vitamin D, LEVOTHYROXINE Patient maximum height was 68.0 Menopause Age: 43 No regular weight bearing exercise Drinks caffeinated beverages Onset of menses at age 14 Number of children 2 Impression: The patient has low bone mass, based on the Right Femoral Neck T-score. The patient has an estimated ten-year risk of hip fracture of 0.6% and an estimated ten-year risk of major fracture of 7.1%, based on the WHO FRAX algorithm. The BMD for the Total Hip(Right) decre
== END ==
PROVIDERS: PCP Physician Assistant; Visit Provider Nurse Practitioner
DX: Z12.31 Encounter for screening mammogram for malignant neoplasm of breast (principal); Z13.820 Encounter for screening for osteoporosis; M85.852 Other specified disorders of bone density and structure, left thigh; M85.851 Other specified disorders of bone density and structure, right thigh
CPT/HCPCS: 77063; 77067; 77080

== ENCOUNTER 2024-12-22 15:59 | Outpatient (CLI) | payer OTHER, SELFPAY ==
--- NOTE | ~2024-12-22 | MM_ITS ---
EXAMINATION: MM screening leticia BI w eben HISTORY: Screening TECHNIQUE: Craniocaudal and mediolateral oblique 3-D tomosynthesis images were obtained and synthetic 2-D images were generated. CAD analysis was submitted and interpreted. COMPARISON: 02/28/2019 BREAST PARENCHYMAL COMPOSITION: The breasts are heterogeneously dense, which may obscure small masses. FINDINGS: There is no evidence of suspicious mass, calcification, or architectural distortion to suggest malignancy. There has been no suspicious interval change. IMPRESSION: 1. No mammographic evidence of malignancy. Recommend routine screening mammography in one year. BI-RADS Category 2: Benign finding(s) Reviewed, dictated and finalized at location Q. IMPRESSION: 1. No mammographic evidence of malignancy. Recommend routine screening mammogra phy in one year. BI-RADS Category 2: Benign finding(s)
--- OUTSIDE RECORDS SUMMARY | 2024-12-22 16:02 | XMS_ITS | Clinical Summary ---
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 Role Phone Jyotih Patton Primary Care Provider [phone] Allergies Active Allergy Reactions Criticality Noted Date Comments Ashish Inhibitors Stomach upset Reaction: Upset Stomach, Erythromycin Rash,Hives High Reaction: Rash, , Reaction: Hives, Medications mometasone (NASONEX) 50 mcg/actuation nasal sprayIndications: Seasonal allergic rhinitis due to pollen Administer 2 sprays into each nostril 2 (two) times a day 51 g 1 02/20/20 23 Active ipratropium (ATROVENT) 42 mcg (0.06 %) nasal sprayIndications: Nasal congestion Administer 2 sprays into each nostril 4 (four) times a day 15 mL 3 03/15/20 23 Active clobetasoL (TEMOVATE) 0.05 % ointment Apply topically 2 (two) times a day 30 g 09/10/19 24 Active clotrimazole-beta methasone (LOTRISONE) creamIndications: Tinea pedis, unspecified laterality Apply topically 2 (two) times a day 30 g 1 12/27/19 24 Active cyclobenzaprine (FLEXERIL) 10 mg tabletIndications :Acute left-sided low back pain without sciatica Take 1 tablet (10 mg total) by mouth 3 (three) times a day as needed for muscle spasms 20 tablet 06/09/19 25 Active amLODIPine (NORVASC) 10 mg tabletIndications :Essential hypertension TAKE 1 TABLET DAILY 90 tablet 3 07/14/19 25 Active cholecalciferol, vitamin D3, (VITAMIN D3 ORAL) Take by mouth Active buPROPion XL (WELLBUTRIN XL) 300 mg 24 hr tabletIndications :Moderate episode of recurrent major depressive disorder (HCC) TAKE 1 TABLET EVERY MORNING 90 tablet 3 08/26/19 25 Active PARoxetine CR (PAXIL-CR) 25 mg 24 hr tabletIndications :Moderate episode of recurrent major depressive disorder (HCC) Take 2 tablets (50 mg total) by mouth every morning 180 tablet 3 09/16/19 25 Active pravastatin (PRAVACHOL) 40 mg tablet TAKE 1 TABLET DAILY 90 tablet 3 09/19/19 25 Active Synthroid 137 mcg tabletIndications :Acquired hypothyroidism TAKE 1 TABLET EARLY IN THE MORNING BEFORE BREAKFAST 90 tablet 3 10/20/19 25 Active Vitamin D2 1,250 mcg (50,000 unit) capsule TAKE 1 CAPSULE ONCE A WEEK 12 capsule 3 12/04/19 25 Active ergocalciferol (VITAMIN D) 50,000 unit capsule Take 1 capsule (50,000 Units total) by mouth once a week 12 capsule 3 02/25/20 24 2024 Discontinued Active Problems Patient Care Coordination No te Formatting of this note migh t be different from the original. Discussed the patients BMI: The BMI is above average BMI management is complete. BMI follow-up includes: Nutrition Counseling and education provided Problem Noted Date Diagnosed Date Paronychia of fingers of both hands 07/22/2024 Assessment & Plan (08/01/2024 11:07 PM CDT): Paronychias present to two fingers for the past 2 weeks that appeared after clipping off hangnails. Has history of similar paronychias which resolve with antibiotic ointment. Non-fluctuant at this time but due to duration of onset, will cover with both oral and topical antibiotics. Discussed nail hygiene and warning signs for worsening infection. - Seek medical attention if you start to have any red streaking on your skin traveling up your hands/arms or begin having fevers or chills - Clean your nail clippers frequently - Finish taking your antibiotics to completion as prescribed Obesity (BMI 30-39.9) 02/25/2024 Assessment & Plan (08/26/2024 8:09 AM CDT): Discussed the patient's BMI. The BMI is above average. BMI management plan is completed. BMI Follow-up includes: nutrition counseling, exercise counseling and education provided. Assessment & Plan (03/07/2024 11:39 PM CADASTRAL SURVEYOR): Discussed the patient's BMI. The BMI is above average. BMI management plan is completed. BMI Follow-up includes: nutrition counseling, exercise counseling and education provided. Patient has an obesity-related condition (not limited to: hypertension, obstructive sleep apnea, osteoarthritis, hyperlipidemia, diabetes, etc.). Therefore, morbid obesity may be documented for patients with a BMI between 35.00-39.99. Closed fracture of lower end of right radius with delayed healing 12/27/2023 BMI 36.0-36.9,adult 12/13/2023 Assessment & Plan (08/26/2024 8:09 AM CDT): Discussed the patient's BMI. The BMI is above average. BMI management plan is completed. BMI Follow-up includes: nutrition counseling, exercise counseling and education provided. Assessment & Plan (07/22/2024 2:51 PM CDT): Discussed the patient's BMI. The BMI is above average. BMI management plan is completed. BMI Follow-up includes: nutrition counseling, exercise counseling and education provided. Assessment & Plan (03/07/2024 11:39 PM CADASTRAL SURVEYOR): Discussed the patient's BMI. The BMI is above average. BMI management plan is completed. BMI Follow-up includes: nutrition counseling, exercise counseling and education provided. Assessment & Plan (12/13/2023 9:11 AM CDT): Discussed the patient's BMI. The BMI is above average. BMI management plan is completed. BMI Follow-up includes: nutrition counseling, exercise counseling and education provided. Dyshidrotic eczema 09/22/2023 Assessment & Plan (09/22/2023 11:05 PM CDT): Patient has cracked thumb skin appears to be dyshidrotic eczema. Keep the hands dry. Will send out clobetasol ointment to apply under occlusion at nighttime with gloves. If symptoms worsen or do not resolve she is to follow-up. 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 It is usually with holding something for a long period of time otherwise she does not have a resting tremor. No family history of familial tremors. No other shuffling or cogwheel noted. Will check labs. Will monitor closely. Encouraged her to use her CPAP regular. When her labs were available were reviewed those long with her blood pressure readings and could consider a low-dose beta-valarie especially if she needs help with blood pressure control. She is in agreement with the plan. Annual physical exam 02/14/2022 Assessment & Plan (03/07/2024 11:38 PM CADASTRAL SURVEYOR): Encouraged healthy lifestyle, good nutrition and exercise. Encouraged Calcium and Vitamin D and weight bearing exercise for bone health. Reviewed immunizations Reviewed age appropirate screenings. Assessment & Plan (03/02/2023 10:06 PM CADASTRAL SURVEYOR): Encouraged healthy lifestyle, good nutrition and exercise. Encouraged Calcium and Vitamin D and weight bearing exercise for bone health. Reviewed immunizations Reviewed age appropirate screenings. Assessment & Plan (02/15/2022 8:25 AM CADASTRAL SURVEYOR): Encouraged healthy lifestyle, good nutrition and exercise. Encouraged Calcium and Vitamin D and weight bearing exercise for bone health. Reviewed immunizations Reviewed age appropirate screenings. Low vitamin D level 09/14/2021 Assessment & Plan (03/07/2024 11:38 PM CADASTRAL SURVEYOR): Supplement Assessment & Plan (12/14/2023 12:15 AM CDT): Supplement Assessment & Plan (09/22/2023 11:07 PM CDT): Supplement Assessment & Plan (02/15/2022 8:25 AM CADASTRAL SURVEYOR): Supplement Assessment & Plan (09/14/2021 8:31 AM CDT): Supplement the D. Dr. Lora is ordered a DEXA so await those results Osteoarthritis 05/12/2021 Prediabetes 08/05/2019 Assessment & Plan (03/07/2024 11:38 PM CADASTRAL SURVEYOR): Pre-diabetes/hyperglycemia is a precursor to Dm. Stressed importance of working on diet (decrease your simple sugars and one carbohydrate with each meal) and increase you exercise to achieve weight loss and this will help prevent you from progressing to diabetes. Assessment & Plan (09/22/2023 10:59 PM CDT): Pre-diabetes/hyperglycemia is a precursor to Dm. Stressed importance of working on diet (decrease your simple sugars and one carbohydrate with each meal) and increase you exercise to achieve weight loss and this will help prevent you from progressing to diabetes. Assessment & Plan (03/02/2023 10:08 PM CADASTRAL SURVEYOR): Pre-diabetes/hyperglycemia is a precursor to Dm. Stressed importance of working on diet (decrease your simple sugars and one carbohydrate with each meal) and increase you exercise to achieve weight loss and this will help prevent you from progressing to diabetes. Assessment & Plan (05/22/2022 9:05 AM CADASTRAL SURVEYOR): Pre-diabetes/hyperglycemia is a precursor to Dm. Stressed importance of working on diet (decrease your simple sugars and one carbohydrate with each meal) and increase you exercise to achieve weight loss and this will help prevent you from progressing to diabetes. Assessment & Plan (02/15/2022 8:25 AM CADASTRAL SURVEYOR): Pre-diabetes/hyperglycemia is a precursor to Dm. Stressed importance of working on diet (decrease your simple sugars and one carbohydrate with each meal) and increase you exercise to achieve weight loss and this will help prevent you from progressing to diabetes. Assessment & Plan (09/14/2021 8:31 AM CDT): Pre-diabetes/hyperglycemia is a precursor to Dm. Stressed importance of working on diet (decrease your simple sugars and one carbohydrate with each meal) and increase you exercise to achieve weight loss and this will help prevent you from progressing to diabetes. Assessment & Plan (09/26/2020 8:27 AM CDT): Pre-diabetes/hyperglycemia is a precursor to Dm. Stressed importance of working on diet (decrease your simple sugars and one carbohydrate with each meal) and increase you exercise to achieve weight loss and this will help prevent you from progressing to diabetes. Assessment & Plan (02/10/2020 4:38 PM CADASTRAL SURVEYOR): Pre-diabetes is a precursor to Dm. Stressed importance of working on diet (decrease your simple sugars and one carbohydrate with each meal) and increase you exercise to achieve weight loss and this will help prevent you from progressing to diabetes. Assessment & Plan (08/05/2019 7:55 AM CDT): Pre-diabetes is a precursor to Dm. Stressed importance of working on diet (decrease your simple sugars and one carbohydrate with each meal) and increase you exercise to achieve weight loss and this will help prevent you from progressing to diabetes. Morbid obesity 01/28/2019 Assessment & Plan (07/22/2024 2:52 PM CDT): Discussed the patient's BMI. The BMI is above average. BMI management plan is completed. BMI Follow-up includes: nutrition counseling, exercise counseling and education provided. Assessment & Plan (12/14/2023 12:16 AM CDT): Discussed the patient's BMI. The BMI is above average. BMI management plan is completed. BMI Follow-up includes: nutrition counseling, exercise counseling and education provided. Patient has an obesity-related condition (not limited to: hypertension, obstructive sleep apnea, osteoarthritis, hyperlipidemia, diabetes, etc.). Therefore, morbid obesity may be documented for patients with a BMI between 35.00-39.99. Assessment & Plan (09/22/2023 11:01 PM CDT): Discussed the patient's BMI. The BMI is above average. BMI management plan is completed. BMI Follow-up includes: nutrition counseling, exercise counseling and education provided. Patient has an obesity-related condition (not limited to: hypertension, obstructive sleep apnea, osteoarthritis, hyperlipidemia, diabetes, etc.). Therefore, morbid obesity may be documented for patients with a BMI between 35.00-39.99. Assessment & Plan (02/19/2023 7:36 AM CADASTRAL SURVEYOR): Discussed the patients BMI: The BMI is above average BMI management is complete. BMI follow-up includes: Nutrition Counseling and education provided Assessment & Plan (02/10/2020 4:38 PM CADASTRAL SURVEYOR): Obesity is unchanged. Discussed the patient's BMI. The BMI is above average. BMI management plan is completed. BMI Follow-up includes: nutrition counseling, exercise counseling and education provided. Assessment & Plan (08/05/2019 7:54 AM CDT): Obesity is unchanged. Discussed the patient's BMI. The BMI is above average. BMI management plan is completed. BMI Follow-up includes: nutrition counseling, exercise counseling and education provided. Assessment & Plan (01/28/2019 7:48 AM CDT): Obesity is unchanged. Discussed the patient's BMI. The BMI is above average. BMI management plan is completed. BMI Follow-up includes: nutrition counseling, exercise counseling and education provided. TABITHA on CPAP 01/28/2019 Assessment & Plan (03/07/2024 11:37 PM CADASTRAL SURVEYOR): Encouraged to use the CPAP regular she currently is not. She currently has increased fatigue daytime sleepiness. She is also grinding her teeth quite a bit. Encouraged her to set a follow-up up with sleep Medicine for further evaluation and to talk about inspire if she is unable to use the CPAP Will check iron panel to rule out anemia contribution Assessment & Plan (02/15/2022 8:23 AM CADASTRAL SURVEYOR): Strongly encouraged her to restart using a CPAP on a regular basis. Reviewed the risks and benefits of untreated or undertreated sleep apnea. Assessment & Plan (09/14/2021 8:30 AM CDT): Continue CPAP use. Has all her needed supplies. Assessment & Plan (09/26/2020 8:28 AM CDT): Has needed supplies but not using regular Assessment & Plan (08/05/2019 7:54 AM CDT): Continue nightly CPAP use. Has all needed supplies Assessment & Plan (01/28/2019 9:29 AM CDT): Continue with her CPAP nightly. She has a needed supplies. Restart the humidifier aspect. Essential hypertension 01/28/2019 Assessment & Plan (03/07/2024 11:38 PM CADASTRAL SURVEYOR): Bp is stable/in acceptable range for any co-morbidities. Encouraged to limit sodium intake and exercise for weight control. Continue amlodipine 10 Assessment & Plan (03/02/2023 10:07 PM CADASTRAL SURVEYOR): Bp is stable/in acceptable range for any co-morbidities. Encouraged to limit sodium intake and exercise for weight control. Continue amlodipine 10 Assessment & Plan (05/22/2022 9:05 AM CADASTRAL SURVEYOR): Bp is stable/in acceptable range for any co-morbidities. Encouraged to limit sodium intake and exercise for weight control. Continue amlodipine 10 Assessment & Plan (02/15/2022 8:24 AM CADASTRAL SURVEYOR): Bp is stable/in acceptable range for any co-morbidities. Encouraged to limit sodium intake and exercise for weight control. Continue amlodipine 10 mg. Encouraged to start doing readings at home. Plan to do a little bit of blood work to workup the tremor. If her readings at home continue to remain elevated will consider a beta-valarie. Based on her readings may have to decrease the amlodipine versus adding on the beta-valarie. Will follow- up once the results are available. Assessment & Plan (09/14/2021 8:30 AM CDT): Bp is stable/in acceptable range for any co-morbidities. Encouraged to limit sodium intake and exercise for weight control. Continue amlodipine 10 Assessment & Plan (01/21/2021 6:42 PM CDT): Continue with her amlodipine 10 mg Bp is stable/in acceptable range for any co-morbidities. Encouraged to limit sodium intake and exercise for weight control. If her readings at home continued to remain above 100 diastolic she is to call the office for medication adjustment. Assessment & Plan (09/26/2020 8:27 AM CDT): Bp is stable/in acceptable range for any co-morbidities. Encouraged to limit sodium intake and exercise for weight control. Continue amldoipine Assessment & Plan (02/10/2020 4:37 PM CADASTRAL SURVEYOR): Bp is stable/in acceptable range for any co-morbidities. Encouraged to limit sodium intake and exercise for weight control. Continue amlodipine Assessment & Plan (08/05/2019 7:54 AM CDT): Bp is stable/in acceptable range for any co-morbidities. Encouraged to limit sodium intake and exercise for weight control. Continue amlodipine Assessment & Plan (01/28/2019 9:29 AM CDT): Bp is stable/in acceptable range for any co-morbidities. Encouraged to limit sodium intake and exercise for weight control. Acquired hypothyroidism 01/28/2019 Assessment & Plan (03/07/2024 11:38 PM CADASTRAL SURVEYOR): Continue levothyroxine 137 mcg. Monitor labs. Assessment & Plan (09/22/2023 11:01 PM CDT): Continue levothyroxine. Monitor labs. Assessment & Plan (03/02/2023 10:07 PM CADASTRAL SURVEYOR): Continue levothyroxine. Monitor labs. Assessment & Plan (05/22/2022 9:05 AM CADASTRAL SURVEYOR): Continue levothyroxine. Monitor labs. Continue Synthroid 137 mcg daily Assessment & Plan (02/15/2022 8:24 AM CADASTRAL SURVEYOR): Continue levothyroxine. Monitor labs. Assessment & Plan (09/14/2021 8:30 AM CDT): Continue levothyroxine. Monitor labs. Assessment & Plan (05/11/2021 7:19 AM CADASTRAL SURVEYOR): Continue levothyroxine. Monitor labs Assessment & Plan (09/26/2020 8:27 AM CDT): Continue levothyroxine. Monitor labs. Assessment & Plan (02/10/2020 4:38 PM CADASTRAL SURVEYOR): Continue levothyroxine. Monitor labs Assessment & Plan (08/05/2019 7:56 AM CDT): Stable labs. Continue levothyroxine Assessment & Plan (01/28/2019 9:29 AM CDT): Continue with levothyroxine. Moderate episode of recurrent major depressive d isorder 01/28/2019 Assessment & Plan (03/07/2024 11:38 PM CADASTRAL SURVEYOR): Continue Wellbutrin 300 and Paxil CR 25. Assessment & Plan (02/15/2022 8:25 AM CADASTRAL SURVEYOR): Continue Wellbutrin and Paxil Assessment & Plan (09/14/2021 8:30 AM CDT): Continue Wellbutrin 300 and Paxil 50 Assessment & Plan (05/11/2021 7:28 AM CADASTRAL SURVEYOR): Continue Wellbutrin and Paxil Assessment & Plan (09/26/2020 8:28 AM CDT): Stable with paxil and wellbutrin. Under a lot of stress with her fathers new Prostate cancer dx (stage 4 planning paliative care) Assessment & Plan (05/29/2020 4:30 PM CADASTRAL SURVEYOR): More control with paxilCR 50mg. Will change dosing to 25mg TWO daily. Reviewed with patient how to make her current supply 50mg to use up what she has. F.u if increase sxs. Assessment & Plan (02/10/2020 4:39 PM CADASTRAL SURVEYOR): Continue with the paxil and wellbutrin Assessment & Plan (08/05/2019 7:56 AM CDT): Well managed with wellbutrin and Paxil Assessment & Plan (01/28/2019 9:29 AM CDT): Stable with the Paxil and Wellbutrin. Refills sent to pharmacy Mixed hyperlipidemia 01/28/2019 Assessment & Plan (03/07/2024 11:38 PM CADASTRAL SURVEYOR): Encouraged patient to follow low fat/low chol diet like the Mediterranean diet. Increase good fats in the diet. Increase exercise. Monitor labs as needed. Continue pravastatin 40 Assessment & Plan (09/22/2023 10:59 PM CDT): Encouraged patient to follow low fat/low chol diet like the Mediterranean diet. Increase good fats in the diet. Increase exercise. Monitor labs as needed. Continue Pravachol 40 Assessment & Plan (03/02/2023 10:07 PM CADASTRAL SURVEYOR): Encouraged patient to follow low fat/low chol diet like the Mediterranean diet. Increase good fats in the diet. Increase exercise. Monitor labs as needed. Continue pravastatin 40 Assessment & Plan (05/22/2022 9:05 AM CADASTRAL SURVEYOR): Encouraged patient to follow low fat/low chol diet like the Mediterranean diet. Increase good fats in the diet. Increase exercise. Monitor labs as needed. Continue pravastatin Assessment & Plan (02/15/2022 8:25 AM CADASTRAL SURVEYOR): Encouraged patient to follow low fat/low chol diet like the Mediterranean diet. Increase good fats in the diet. Increase exercise. Monitor labs as needed. Continue statin Assessment & Plan (09/14/2021 8:31 AM CDT): Encouraged patient to follow low fat/low chol diet like the Mediterranean diet. Increase good fats in the diet. Increase exercise. Monitor labs as needed. Continue pravastatin Assessment & Plan (09/26/2020 8:27 AM CDT): Encouraged patient to follow fat/low chol diet like the Mediterranean diet. Increase good fats in the diet. Increase exercise. Monitor labs as needed. Continue statin Assessment & Plan (02/10/2020 4:38 PM CADASTRAL SURVEYOR): Encouraged patient to follow fat/low chol diet like the Mediterranean diet. Increase good fats in the diet. Increase exercise. Monitor labs as needed. Assessment & Plan (08/05/2019 7:56 AM CDT): This is a significant, separately identifiable problem that was evaluated and managed on the same day as the wellness exam Encouraged patient to continue low fat/low chol diet. Continue exercise. Increase good fats in the diet. Monitor labs as needed. Increase the pravastatin to 40mg to get a moderate intensity. She has been tolerating well. Last labs were about 6 moths ago and stable Assessment & Plan (01/28/2019 9:29 AM CDT): Encouraged patient to continue low fat/low chol diet. Continue exercise. Increase good fats in the diet. Monitor labs as needed. D Vitreous floaters of right eye 01/08/2018 Abnormal findings on radiolo gical examination of gastrointestinal tract 07/28/2010 Assessment & Plan (02/10/2020 4:38 PM CADASTRAL SURVEYOR): Obesity is unchanged. Discussed the patient's BMI. The BMI is above average. BMI management plan is completed. BMI Follow-up includes: nutrition counseling, exercise counseling and education provided. Irritable bowel syndrome 07/28/2010 Never smoked tobacco 07/28/2010 Resolved Problems Problem Noted Date Diagnosed Date Resolved Date Right wrist pain 12/14/2023 02/25/2024 Assessment & Plan (12/14/2023 12:17 AM CDT): Patient has had persistent right wrist pain with decreased range of motion since fall mid October. Recommend repeating x-rays today. Continue with the forearm splint until x-rays are available. Continue with icing the area and anti-inflammatories as tolerated. Advised if fractures present will need to see ortho hand. If no fracture will consider physical therapy. Patient is in agreement with the plan BMI 35.0-35.9,adult 09/10/2023 12/13/19 24 Assessment & Plan (09/10/2023 7:35 AM CDT): Discussed the patient's BMI. The BMI is above average. BMI management plan is completed. BMI Follow-up includes: nutrition counseling, exercise counseling and education provided. TABITHA (obstructive sleep apnea) 03/02/2023 02/25/2024 Assessment & Plan (03/15/2023 8:56 AM CADASTRAL SURVEYOR): The patient was diagnosed with obstructive sleep apnea long ago. She is considering other options for therapy. Per her request, I will proceed with a home sleep test to confirm the diagnosis and then decide on therapy. Assessment & Plan (03/02/2023 10:08 PM CADASTRAL SURVEYOR): Reviewed the importance of using his CPAP nightly to avoid logs her sequela of untreated or undertreated sleep apnea Colon cancer screening 03/02/202302/24 Assessment & Plan (03/02/2023 10:08 PM CADASTRAL SURVEYOR): Cologuard due Need for immunization against influenza 03/02/2023 02/25/2024 Assessment & Plan (03/02/2023 10:10 PM CADASTRAL SURVEYOR): Flu vaccine updated in the office Chronic pain of left thumb 05/22/2022 1 04/26/2023 Assessment & Plan (05/22/2022 9:08 AM CADASTRAL SURVEYOR): Chronic pain in the left thumb. The joint at the carpals is the area that is most tender and swollen. It is limiting her abilities. Will refer to ortho hand Dr. Haile for further evaluation. I did not get x-rays as IV for assumed she would obtain them in her office. Thuan is in agreement with the plan Fatigue 02/15/2022 02/25/2024 Assessment & Plan (09/22/2023 11:01 PM CDT): Probably multifactorial. Check labs and followup to re-evaluate Assessment & Plan (03/02/2023 10:08 PM CADASTRAL SURVEYOR): Probably multifactorial. Check labs and followup to re-evaluate Assessment & Plan (05/22/2022 9:07 AM CADASTRAL SURVEYOR): Probably multifactorial. Check labs and followup to re-evaluate Assessment & Plan (02/15/2022 8:33 AM CADASTRAL SURVEYOR): Probably multifactorial. Check labs and followup to re-evaluate Need for influenza vaccination 02/15/2022 02/25/2024 Assessment & Plan (03/02/2023 10:09 PM CADASTRAL SURVEYOR): Flu vaccine updated in the office today Assessment & Plan (02/15/2022 8:31 AM CADASTRAL SURVEYOR): Flu updated in the office Cold virus 07/23/2021 09/14/2021 Assessment & Plan (07/23/2021 8:04 PM CDT): Encouraged supportive care. Push fluids. Rest. Reviewed that most viral conditions may have sxs that last for 10-14 days. If sxs worsen or don\'t fully resolve, pt is to followup in the office. Benign hypertensive heart di sease without heart failure 05/12/2021 02/25/2024 Morbid obesity 05/10/2021 02/25/2024 Assessment & Plan (05/22/2022 9:07 AM CADASTRAL SURVEYOR): Discussed the patient's BMI. The BMI is above average. BMI management plan is completed. BMI Follow-up includes: nutrition counseling, exercise counseling and education provided. Patient has an obesity-related condition (not limited to: hypertension, obstructive sleep apnea, osteoarthritis, hyperlipidemia, diabetes, etc.). Therefore, morbid obesity may be documented for patients with a BMI between 35.00-39.99. Assessment & Plan (05/10/2021 7:40 AM CADASTRAL SURVEYOR): Obesity is unchanged. Discussed the patient's BMI. The BMI is above average. BMI management plan is completed. BMI Follow-up includes: nutrition counseling, exercise counseling and education provided. BMI 36.0-36.9,adult 05/10/2021 09/10/19 24 Assessment & Plan (05/22/2022 9:07 AM CADASTRAL SURVEYOR): Discussed the patient's BMI. The BMI is above average. BMI management plan is completed. BMI Follow-up includes: nutrition counseling, exercise counseling and education provided. Assessment & Plan (05/10/2021 7:40 AM CADASTRAL SURVEYOR): Obesity is unchanged. Discussed the patient's BMI. The BMI is above average. BMI management plan is completed. BMI Follow-up includes: nutrition counseling, exercise counseling and education provided. Encounter for pre-operative examination 05/10/2021 09/14/2021 Pre-operative clearance 05/10/202108/30 Assessment & Plan (05/11/2021 7:23 AM CADASTRAL SURVEYOR): Patient presents for preoperative clearance for total knee replacement. Reviewed risks benefits of surgeries in general. Discussed cardiovascular risk related to surgery and the means to determine preoperative risk and need for additional workup. She has multiple risk factors including age hypertension hyperlipidemia and obesity. Review of EKG done at [facility] on 05/09 revealed baseline artifact in multiple leads and LVH as well as early precordial R RS transition and minimal Q-waves with with high lateral leads. I repeated an EKG in the office today due to the baseline artifact on yesterday's EKG and it is still showing possible LVH with nonspecific T-wave abnormalities. I was able to obtain a EKG from [facility] in approximately 2013 that also had abnormalities. Patient states she has never been seen by Cardiology. I recommend evaluation by Cardiology prior to clearance for this total knee due to the EKG readings with risk factors. Will attempt to get patient is quickly as possible to avoid delay in her surgery. She understands the importance of the evaluation and is willing to go. Leukocytosis 05/10/2021 02/25/2024 Assessment & Plan (05/11/2021 7:23 AM CADASTRAL SURVEYOR): Elevated white blood count. Patient denies any current symptoms. Will just repeat labs as need to recheck potassium. Hypokalemia 05/10/2021 02/25/2024 Assessment & Plan (05/11/2021 7:24 AM CADASTRAL SURVEYOR): Potassium is low at 3 today. Will go ahead and recheck labs today to make sure this is an erroneous reading. She plans to go to [facility] so will get them back same day or overnight. Abnormal EKG 05/10/2021 02/25/2024 Assessment & Plan (05/11/2021 7:25 AM CADASTRAL SURVEYOR): Patient presents for preoperative clearance for total knee replacement. Reviewed risks benefits of surgeries in general. Discussed cardiovascular risk related to surgery and the means to determine preoperative risk and need for additional workup. She has multiple risk factors including age hypertension hyperlipidemia and obesity. Review of EKG done at [facility] on 05/09 revealed baseline artifact in multiple leads and LVH as well as early precordial R RS transition and minimal Q-waves with with high lateral leads. I repeated an EKG in the office today due to the baseline artifact on yesterday's EKG and it is still showing possible LVH with nonspecific T-wave abnormalities. I was able to obtain a EKG from [facility] in approximately 2013 that also had abnormalities. Patient states she has never been seen by Cardiology. I recommend evaluation by Cardiology prior to clearance for this total knee due to the EKG readings with risk factors. Will attempt to get patient is quickly as possible to avoid delay in her surgery. She understands the importance of the evaluation and is willing to go. Skin ulcer of finger, limite d to breakdown of skin 01/21/2021 09/14/2021 Assessment & Plan (01/21/2021 6:44 PM CDT): Unknown etiology. Differentials include dyshidrotic eczema versus psoriasis versus secondary infection versus other etiology Will start with betamethasone to the area. She is to an occluded at night with a glove. Will go ahead and make a referral to Dermatology so that if this does not work she will have the appointment already pending. If it does work she can cancel. If she has new symptoms she is to call. Flu vaccine need 01/21/2021 09/14/2021 Assessment & Plan (01/21/2021 6:44 PM CDT): Vaccine updated in office today Obesity (BMI 30-39.9) 01/19/20212021 Assessment & Plan (01/19/2021 2:01 PM CDT): Obesity is unchanged. Discussed the patient's BMI. The BMI is above average. BMI management plan is completed. BMI Follow-up includes: nutrition counseling, exercise counseling and education provided. BMI 35.0-35.9,adult 01/19/2021 05/10/19 Assessment & Plan (01/19/2021 2:01 PM CDT): Obesity is unchanged. Discussed the patient's BMI. The BMI is above average. BMI management plan is completed. BMI Follow-up includes: nutrition counseling, exercise counseling and education provided. Contact with nonvenomous rhiannon nt thorns and spines and sharp leaves, initial encounter 11/26/2020 09/14/2021 Assessment & Plan (11/26/2020 11:18 AM CDT): See foreign body Foreign body (FB) in soft tissue 11/26/2020 09/14/2021 Assessment & Plan (11/29/2020 10:52 PM CDT): Patient presents today with thorn in her right soft tissue above the wrist. Cleaned the area with alcohol and then used ice to numb the area as instructed patient I didn't want to inject or use a blade to dig into the area due to the multiple nerves and blood vessels in the direct area. I tried to scrape off the top skin layer to back out the thorn but was unsucessful. Discussed options with patient including ER vs using topical NATIVIDAD to see if body will back it out on its own. Decided to see if NATIVIDAD will help to push out the foreign body. NATIVIDAD and bandaid applied. Monitor closely. If sxs/swelling/pain increase, may need to go to the ER. Will start on Keflex tid x 10 days. Tdap is UTD 11/26. Called to check on patient to see how she is doing. Had to leave a message on her voice mail. 11/28 My staff left 2 messages for patient to return the call. Will close this note and open telephone message to try to contact patient again. Obesity (BMI 30-39.9) 11/25/20202020 Assessment & Plan (11/25/2020 10:48 AM CDT): Obesity is unchanged. Discussed the patient's BMI. The BMI is above average. BMI management plan is completed. BMI Follow-up includes: nutrition counseling, exercise counseling and education provided. BMI 35.0-35.9,adult 11/25/2020 01/20/20 Assessment & Plan (11/25/2020 10:48 AM CDT): Obesity is unchanged. Discussed the patient's BMI. The BMI is above average. BMI management plan is completed. BMI Follow-up includes: nutrition counseling, exercise counseling and education provided. Obesity (BMI 30-39.9) 09/26/20202020 Assessment & Plan (09/26/2020 7:32 AM CDT): Obesity is unchanged. Discussed the patient's BMI. The BMI is above average. BMI management plan is completed. BMI Follow-up includes: nutrition counseling, exercise counseling and education provided. BMI 35.0-35.9,adult 09/26/2020 11/26/19 Assessment & Plan (09/26/2020 7:32 AM CDT): Obesity is unchanged. Discussed the patient's BMI. The BMI is above average. BMI management plan is completed. BMI Follow-up includes: nutrition counseling, exercise counseling and education provided. Chronic pain of both knees 09/26/2020 0 09/14/2021 Assessment & Plan (09/26/2020 8:29 AM CDT): Patient having increased pain. Will refer back to Dr. Hester for further evaluation and Possible injections. Pain of right heel 09/26/2020 4 Assessment & Plan (09/26/2020 8:30 AM CDT): Refer to Dr Hester as also having knee pain. Preop cardiovascular exam 09/25/2020 Assessment & Plan (09/26/2020 8:29 AM CDT): Encouraged healthy lifestyle, good nutrition and exercise. Encouraged Calcium and Vitamin D and weight bearing exercise for bone health. Reviewed immunizations Reviewed age appropirate screenings. Acute non-recurrent sinusitis 05/29/2020 09/25/2020 Assessment & Plan (05/29/2020 4:33 PM CADASTRAL SURVEYOR): Start second course of antibiotic, antihistamine (Claritin OR Zyrtec), Mucinex 12hour and Steroid nasal spray (Flonase). Push fluids. Rest. Supportive care. If sxs worsen or don\'t improve, pt is to followup in the office. BMI 35.0-35.9,adult 05/26/2020 09/27/19 Assessment & Plan (05/26/2020 7:24 AM CADASTRAL SURVEYOR): Obesity is unchanged. Discussed the patient's BMI. The BMI is above average. BMI management plan is completed. BMI Follow-up includes: nutrition counseling, exercise counseling and education provided. Obesity (BMI 30-39.9) 05/26/20202020 Assessment & Plan (05/26/2020 7:25 AM CADASTRAL SURVEYOR): Obesity is unchanged. Discussed the patient's BMI. The BMI is above average. BMI management plan is completed. BMI Follow-up includes: nutrition counseling, exercise counseling and education provided. Nasal congestion 05/14/2020 02/25/2024 Assessment & Plan (03/15/2023 8:57 AM CADASTRAL SURVEYOR): She is using Flonase and Zyrtec and still has nasal congestion. I will give her a trial of Atrovent nasal spray 0.06% to use 2 puffs q.i.d.. Assessment & Plan (05/14/2020 11:34 AM CADASTRAL SURVEYOR): Suspect sinusitis but cant rule out COVID. Observe quarantine until results are available. Start antibiotic, antihistamine (Claritin OR Zyrtec), Mucinex 12hour and Steroid nasal spray (Flonase). Push fluids. Rest. Supportive care. If sxs worsen or don\'t improve, pt is to followup in the office. Needs flu shot 02/10/2020 05/29/2020 Assessment & Plan (02/10/2020 4:42 PM CADASTRAL SURVEYOR): Updated in office today Breast cancer screening by mammogram 02/10/2020 09/14/2021 Assessment & Plan (09/26/2020 8:28 AM CDT): Mammogram order provided Assessment & Plan (02/10/2020 4:42 PM CADASTRAL SURVEYOR): Mammogram order provided Colon cancer screening 02/10/202009/25 Assessment & Plan (02/10/2020 4:42 PM CADASTRAL SURVEYOR): cologuard order sent Annual physical exam 08/05/2019 020 Assessment & Plan (08/05/2019 7:56 AM CDT): Encouraged healthy lifestyle, good nutrition and exercise. Encouraged Calcium and Vitamin D and weight bearing exercise for bone health. Reviewed immunizations Reviewed age appropirate screenings. Request copy of colonoscopy to determine appropriate followup Right foot pain 08/05/2019 09/26/2020 Assessment & Plan (08/05/2019 7:54 AM CDT): This is a significant, separately identifiable problem that was evaluated and managed on the same day as the wellness exam Persistent pain/burning, not responding to NSAIDs with negative xrays at [place]. Recommend referral to Ortho. She is established with Dr. Santos so she will start there as he give knee injections on a regular basis. Will send referral and she will call to set up her own appt. Acute non-recurrent maxillary sinusitis 05/24/2019 08/05/2019 Assessment & Plan (05/24/2019 4:49 PM CADASTRAL SURVEYOR): Start antibiotic, antihistamine (Claritin OR Zyrtec), Mucinex 12hour and Steroid nasal spray (Flonase). Push fluids. Rest. Supportive care. If sxs worsen or don\'t improve, pt is to followup in the office. BMI 34.0-34.9,adult 05/14/2019 09/10/19 24 Assessment & Plan (03/02/2023 10:07 PM CADASTRAL SURVEYOR): Discussed the patient's BMI. The BMI is above average. BMI management plan is completed. BMI Follow-up includes: nutrition counseling, exercise counseling and education provided. Assessment & Plan (05/14/2019 11:53 AM CADASTRAL SURVEYOR): Obesity is unchanged. Discussed the patient's BMI. The BMI is above average. BMI management plan is completed. BMI Follow-up includes: nutrition counseling, exercise counseling and education provided. BMI 36.0-36.9,adult 01/28/2019 05/26/19 21 Assessment & Plan (02/10/2020 4:39 PM CADASTRAL SURVEYOR): Obesity is unchanged. Discussed the patient's BMI. The BMI is above average. BMI management plan is completed. BMI Follow-up includes: nutrition counseling, exercise counseling and education provided. Assessment & Plan (08/05/2019 7:56 AM CDT): Obesity is unchanged. Discussed the patient's BMI. The BMI is above average. BMI management plan is completed. BMI Follow-up includes: nutrition counseling, exercise counseling and education provided. Assessment & Plan (01/28/2019 7:48 AM CDT): Obesity is unchanged. Discussed the patient's BMI. The BMI is above average. BMI management plan is completed. BMI Follow-up includes: nutrition counseling, exercise counseling and education provided. Allergic rhinitis 01/28/2019 02/25/2024 Assessment & Plan (03/02/2023 10:07 PM CADASTRAL SURVEYOR): Continue Claritin Nasonex and Singulair as symptoms are stable Assessment & Plan (09/26/2020 8:27 AM CDT): Continue otc regimen Assessment & Plan (02/10/2020 4:37 PM CADASTRAL SURVEYOR): Continue current regimen Assessment & Plan (08/05/2019 7:54 AM CDT): Continue current regimen Assessment & Plan (05/24/2019 4:48 PM CADASTRAL SURVEYOR): Start antihistamine (Claritin OR Zyrtec), Mucinex 12hour and Steroid nasal spray (Flonase). Push fluids. Rest. Supportive care. If sxs worsen or don\'t improve, pt is to followup in the office. Assessment & Plan (01/28/2019 9:28 AM CDT): Continue the Xyzal and the Singulair. May use Zaditor [id number] for the I symptoms. Will hold the Flonase and change to Nasonex to see if it is a little more Aach we is and more comfortable for her. Encouraged her to restart the humidifier component of her CPAP to see if this helps also. Need for immunization against influenza 01/28/2019 08/05/2019 Assessment & Plan (01/28/2019 9:29 AM CDT): Flu updated in the office Other fatigue 01/28/2019 08/05/2019 Diabetes mellitus screening 01/28/2019 08/05/2019 Moderate single current epis ode of major depressive disorder 10/31/2016 09/14/2021 Class 1 obesity due to exces s calories without serious comorbidity with body mass index (BMI) of 34.0 to 34.9 in adult 10/31/2016 Encounters Date Type Department Care Team Description 10/20/2024 Results Follow-Up [facility] [address] [place] [address] Jyothi Patton PA MMR (IGG) PANEL (MEASLES, MUMPS, RUBELLA), CBC with auto differential, Comprehensive metabolic panel, Additional followed-up results: 5 from Last 3 Months Immunizations Immunization Administration Dates Next Due DTaP 10/31/2016 Influenza, Quadrivalent, Spl it, Preservative Free, Intramuscular 02/19/2023,02/15/2022,01/19/2021,02/09,01/28/2019,01/08/2018,01/20/2016 Influenza, Trivalent, Preser vative Free, Intramuscular 02/25/2024 PPD TEST 05/21/1997 Pfizer SARS-CoV-2 Monovalent Vaccination (12+ Yrs) PURPLE 08/04/2020,07/14/2020 Surgical History Surgery Date Site/Laterality Comments OTHER SURGICAL HISTORY 04/01/2005 - 03/31/2006 ovary removed - left THYROIDECTOMY 04/01/2004 - 03/31/2005 Thyroidectomy OTHER SURGICAL HISTORY 04/01/1991 - 03/31/1992 Right Ankle Fracture: open reduction internal fixation JOINT REPLACEMENT 05/16/2021 Right right knee Medical History Medical History Date Comments Hx Other Medical Ankle Fracture; Outcome: successful Hypertension Hypertension Disorder of thyroid Thyroid dise ase Arthritis Migraines Years Depression 2015 Family History Medical History Relation Name Comments Allergy (severe) Father Edmundo Arthritis Father Edmundo Cancer Father Edmundo Clotting disorder Father Edmundo Depression Father Edmundo Hearing loss Father Edmundo Hypertension Father Edmundo Diabetes Other 1 Family history of Diabetes mellitus; Heart disease Other 2 Family history of Heart disease; Hypertension Other 3 Family history of Hypertension; Osteoarthritis Other 4 Family histor y of Osteoarthritis; Relation Name Status Comments Father Edmundo Alive Other 1 Other 2 Other 3 Other 4 Social History Tobacco Use Types Packs/Day Years Used Date Smoking Tobacco: Never Smokeless Tobacco: Never Tobacco Cessation:Counseling Given: Not Answered Alcohol Use Standard Drinks/Week Comments No 0 (1 standard drink = 0.6 oz pur e alcohol) AUDIT-C Answer Date Recorded Q1: How often do you have a drink containing alcohol? Never 08/26/2024 Q2: How many drinks containi ng alcohol do you have on a typical day when you are drinking? Patient does not drink Q3: How often do you have si x or more drinks on one occasion? Never 08/26/2024 PHQ-2 Answer Date Recorded PHQ-2 Total Score (If total score is 3 or more points, staff should administer the PHQ-9) 0 08/26/2024 Comments No Sex and Gender Information Value Date Recorded Sex Assigned at Not on file Legal Sex Female 9:21 AM CADASTRAL SURVEYOR Gender Identity Female 05/11/2020 9:43 AM CADASTRAL SURVEYOR Sexual Orientation Straight 05/11/2020 9: 43 AM CADASTRAL SURVEYOR Obstetrics History Last Filed Vital Signs Vital Sign Reading Time Taken Comments Blood Pressure 128/72 08/26/2024 8:08 AM CDT Pulse 78 08/26/2024 8:08 AM CDT Temperature 36.7 C (98 F) 08/26/2024 8:08 AM CDT Respiratory Rate 12 06/08/2024 3:43 PM CDT Oxygen Saturation 97% 08/26/2024 8:08 AM CDT Inhaled Oxygen Concentration - - Weight 106.1 kg (234 lb) 08/26/2024 8:08 AM CDT Height 170.2 cm (5' 7) 08/26/2024 8:08 AM CDT Body Mass Index 36.65 08/26/2024 8:08 AM CDT Plan of Treatment Health Maintenance Due Date Last Done Comments Hepatitis C Screening 1965 Hepatitis B Screening 08/28/1981 Zoster Vaccine (1 of 2) 08/28/2013 Breast Cancer Screening-Mammogram 04/19/2023 04/19/2022, 02/28/2019, 02/28/2019 Cervical Cancer Screening 2023 08/28/2022 Covid-19 Vaccine ( season) 2024 08/04/2020, 07/14/2020 Influenza Vaccine (#1) 2024 , 02/19/2023, 02/15/2022, Additional history exists Regular Well Visit/Exam 18-64 02/24/2025 02/25/2024, 02/19/2023, 02/15/2022, Additional history exists Depression Screening 08/26/2025 08/26/2024, 07/22/2024, 02/25/2024, Additional history exists Colon Cancer Screening-DNA Stool 03/08/2026 03/08/2023, 02/27/2020 DTaP/Tdap/Td Vaccine (2 - Tdap) 10/31/2026 10/31/2016 Colon Cancer Screening-FIT Discontinued 03/08/2023, Pneumococcal vaccine <65 Aged Out No longer eligible based on patient's age to complete this topic Procedures Procedure Name Priority Date/Time Associated Diagnosis Comments FERRITIN Routine 10/10/2024 9:50 AM CDT IRON PROFILE W/ IBC Routine 10/10/2024 9 :50 AM CDT TSH Routine 10/10/2024 9:50 AM CDT Fatigue, unspecified type LIPID PANEL Routine 10/10/2024 9:50 AM CDT Mixed hyperlipidemia HEMOGLOBIN A1C Routine 10/10/2024 9:50 AM CDT Prediabetes COMPREHENSIVE METABOLIC PANEL Routine 10/10/2024 9:50 AM CDT Mixed hyperlipidemia CBC WITH AUTO DIFFERENTIAL Routine 10/10/2024 9:50 AM CDT Fatigue, unspecified type MMR (IGG) PANEL (MEASLES, MUMPS, RUBELLA) Routine 10/10/2024 9:50 AM CDT Immunity status testing STOOL DNA COLOGUARD Routine 03/08/2023 9:00 AM CADASTRAL SURVEYOR Colon cancer screening HM MAMMOGRAPHY Routine 04/19/2022 from Last 3 Months or Most Recently Relevant to Health Maintenance Results * MMR (IGG) PANEL (MEASLES, MUMPS, RUBELLA) (10/10/2024 9:50 AM CDT) Measles (Rubeola) IgG 25.70 AU/mL [facility] Comment: AU/mL Interpretation ----- <13.50 Not consistent with immunity 13.50-16.49 Equivocal >16.49 Consistent with immunity The presence of measles IgG suggests immunization or past or current infection with measles virus. For additional information, please refer to http://education.Wantr/faq/WMU204 (This link is being provided for informational/ educational purposes only.) Mumps IgG >300.00 AU/mL [facility] Comment: AU/mL Interpretation ------- <9.00 Not consistent with immunity 9.00-10.99 Equivocal >10.99 Consistent with immunity The presence of mumps IgG antibody suggests immunization or past or current infection with mumps virus. Rubella IgG 1.05 Index [facility] Comment: Index Interpretation ----- <0.90 Not consistent with immunity 0.90-0.99 Equivocal > or = 1.00 Consistent with immunity The presence of rubella IgG antibody suggests immunization or past or current infection with rubella virus. Blood 10/10/2024 9:50 AM CDT 10/10/2024 9:51 AM CDT Narrative [facility] - 10/13/2024 4:52 PM CDT FASTING:YES FASTING: YES us Jyothi [facility] BLOOD ORDERABLES Final Result [facility] [address] [id number] * Iron profile w/ IBC (10/10/2024 9:50 AM CDT) Iron 90 45 - 160 mcg/dL [facility] TIBC 332 250 - 450 mcg/dL (calc) [facility] Iron saturation 27 16 - 45 % (calc) [facility] 10/10/2024 9:50 AM CDT 10/10/2024 9:51 AM CDT Narrative [facility] - 10/13/2024 4:52 PM CDT FASTING:YES FASTING: YES us Jyothi WEBER [facility] BLOOD ORDERABLES Final Result [facility] [address] [facility] [place] [address] * (ABNORMAL) CBC with auto differential (10/10/2024 9:50 AM CDT) Pathologist [facility] WBC 12.3(H) 3.8 - 10.8 Thousand/u L [facility] RBC, POC 5.51(H) 3.80 - 5.10 Million/uL [facility] Hgb 15.6(H) 11.7 - 15.5 g/dL [facility] Hct 49.5(H) 35.0 - 45.0 % [facility] MCV 89.8 80.0 - 100.0 fL [facility] MCH 28.3 27.0 - 33.0 pg [facility] MCHC 31.5(L) 32.0 - 36.0 g/dL [facility] Comment: For adults, a slight decrease in the calculated MCHC value (in the range of 30 to 32 g/dL) is most likely not clinically significant; however, it should be interpreted with caution in correlation with other red cell parameters and the patient's clinical condition. Rdw 14.0 11.0 - 15.0 % [facility] Platelets 333 140 - 400 Thousand/u L [facility] MPV 10.4 7.5 - 12.5 fL [facility] Neutrophils, abs 7,405 1,500 - 7,800 cells/uL [facility] Lymphocytes, abs 3,776 850 - 3,900 cells/uL [facility] Monocyte abs 541 200 - 950 cells/uL [facility] Eosinophils, abs 455 15 - 500 cells/uL [facility] Basophils, abs 123 0 - 200 cells/uL [facility] Neutrophils 60.2 % [facility] Lymphocyte pct 30.7 % [facility] Monocytes 4.4 % [facility] Eosinophils 3.7 % [facility] Basophils 1.0 % [facility] Blood 10/10/2024 9:50 AM CDT 10/10/2024 9:51 AM CDT Narrative [facility] - 10/13/2024 4:52 PM CDT FASTING:YES FASTING: YES Jyothi [facility] BLOOD ORDERABLES Final Result Performing Organization Address City/[facility] Co de Phone Number [facility] [address] [place] [address] * TSH (10/10/2024 9:50 AM CDT) [facility] TSH 0.55 0.40 - 4.50 mIU/L [facility] Blood 10/10/2024 9:50 AM CDT 10/10/2024 9:51 AM CDT Narrative [facility] - 10/13/2024 4:52 PM CDT FASTING:YES FASTING: YES Jyothi WE[facility] BLOOD ORDERABLES Final Result Performing Organization Address [facility] de Phone Number [facility] [address] [place] [address] * (ABNORMAL) Hemoglobin A1c (10/10/2024 9:50 AM CDT) Pathologist [facility] Hgb A1C 5.9(H) <5.7 % of total Hgb [facility] Comment: For someone without known diabetes, a hemoglobin A1c value between 5.7% and 6.4% is consistent with prediabetes and should be confirmed with a follow-up test. For someone with known diabetes, a value <7% indicates that their diabetes is well controlled. A1c targets should be individualized based on duration of diabetes, age, comorbid conditions, and other considerations. This assay result is consistent with an increased risk of diabetes. Currently, no consensus exists regarding use of hemoglobin A1c for diagnosis of diabetes for children. Blood 10/10/2024 9:50 AM CDT 10/10/2024 9:51 AM CDT Narrative [facility] - 10/13/2024 4:52 PM CDT FASTING:YES FASTING: YES Jyothi WEBER LAB BLOOD ORDERABLES Final Result [facility] [address] [place] [address] * Ferritin (10/10/2024 9:50 AM CDT) Pathologist [facility] Ferritin 48 16 - 288 ng/mL [facility] 10/10/2024 9:50 AM CDT 10/10/2024 9:51 AM CDT Narrative [facility] - 10/13/2024 4:52 PM CDT FASTING:YES FASTING: YES Jyothi WEBER LAB BLOOD ORDERABLES Final Result [facility] [address] [place] [address] * Lipid panel (10/10/2024 9:50 AM CDT) Cholesterol 184 <200 mg/dL [facility] HDL 65 > OR = 50 mg/dL [facility] Triglycerides 123 <150 mg/dL [facility] LDL 97 mg/dL (calc) [facility] Comment: Reference range: <100 Desirable range <100 mg/dL for primary prevention; <70 mg/dL for patients with CHD or diabetic patients with > or = 2 CHD risk factors. LDL-C is now calculated using the Alban calculation, which is a validated novel method providing better accuracy than the Friedewald equation in the estimation of LDL-C. Jason URIAS et al. ONELIA. 2013;310(19): 9260-9686 (http://education.Wantr/faq/LSW760) Chol/HDL ratio 2.8 <5.0 (calc) [facility] Non-HDL, (LDL+VLDL) 119 <130 mg/dL (calc) [facility] Comment: For patients with diabetes plus 1 major ASCVD risk factor, treating to a non-HDL-C goal of <100 mg/dL (LDL-C of <70 mg/dL) is considered a therapeutic option. Blood 10/10/2024 9:50 AM CDT 10/10/2024 9:51 AM CDT Narrative [facility] - 10/13/2024 4:52 PM CDT FASTING:YES FASTING: YES Jyothi WEBER LAB BLOOD ORDERABLES Final Result [facility] [address] [place] [address] * (ABNORMAL) Comprehensive metabolic panel (10/10/2024 9:50 AM CDT) [facility] Glucose 112(H) 65 - 99 mg/dL [facility] Comment: Fasting reference interval For someone without known diabetes, a glucose value between 100 and 125 mg/dL is consistent with prediabetes and should be confirmed with a follow-up test. BUN 14 7 - 25 mg/dL [facility] Creatinine 0.96 0.50 - 1.05 mg/dL [facility] eGFR 67 > OR = 60 mL/min/1.7 3m2 [facility] BUN/creat ratio SEE NOTE: 6 - 22 (calc) [facility] Comment: Not Reported: BUN and Creatinine are within reference range. Sodium 144 135 - 146 mmol/L [facility] Potassium, pl 3.5 3.5 - 5.3 mmol/L [facility] Chloride 103 98 - 110 mmol/L [facility] CO2 30 20 - 32 mmol/L [facility] Calcium 8.7 8.6 - 10.4 mg/dL [facility] Protein, sr 6.6 6.1 - 8.1 g/dL [facility] Albumin 4.3 3.6 - 5.1 g/dL [facility] GLOBULIN 2.3 1.9 - 3.7 g/dL (calc) [facility] Alb/glob ratio 1.9 1.0 - 2.5 (calc) [facility] Bilirubin, total 0.5 0.2 - 1.2 mg/dL [facility] Alk phos 69 37 - 153 U/L [facility] AST 23 10 - 35 U/L [facility] ALT (SGPT) 23 6 - 29 U/L [facility] Blood 10/10/2024 9:50 AM CDT 10/10/2024 9:51 AM CDT Narrative [facility] - 10/13/2024 4:52 PM CDT FASTING:YES FASTING: YES Jyothi WEBER LAB BLOOD ORDERABLES Final Result [facility] [address] [place] [address] * Stool DNA - Cologuard (03/08/2023 9:00 AM CADASTRAL SURVEYOR) Stool DNA - Cologuard Negative Negative [facility] (CLIA #:[id number]) Comment: NEGATIVE TEST RESULT. A negative Cologuard result indicates a low likelihood that a colorectal cancer (CRC) or advanced adenoma (adenomatous polyps with more advanced pre-malignant features) is present. The chance that a person with a negative Cologuard test has a colorectal cancer is less than 1 in 1500 (negative predictive value >99.9%) or has an advanced adenoma is less than 5.3% (negative predictive value 94.7%). These data are based on a prospective cross-sectional study of 10,000 individuals at average risk for colorectal cancer who were screened with both Cologuard and colonoscopy. (Beverly Mosqueda al, N Engl J Med 2014;370(14):6063-1277) The normal value (reference range) for this assay is negative. COLOGUARD RE-SCREENING RECOMMENDATION: Periodic colorectal cancer screening is an important part of preventive healthcare for asymptomatic individuals at average risk for colorectal cancer. Following a negative Cologuard result, the [place] Cancer Society and U.S. Multi-Society Task Force screening guidelines recommend a Cologuard re-screening interval of 3 years. References: [place] Cancer Society Guideline for Colorectal Cancer Screening: https://www.cancer.org/cancer/rdblr-czotde-islsth/lizfcmptf-gxctpawtl-thxcyta/ac s-rec ommendations.html.; Roberto Carlos DK, Cat CR, Charley JacobK, Colorectal Cancer Screening: Recommendations for Physicians and Patients from the U.S. Multi-Society Task Force on Colorectal Cancer Screening , Am J Gastroenterology 2017; 112:2047-6334. TEST DESCRIPTION: Composite algorithmic analysis of stool DNA-biomarkers with hemoglobin immunoassay. Quantitative values of individual biomarkers are not reportable and are not associated with individual biomarker result reference ranges. Cologuard is intended for colorectal cancer screening of adults of either sex, 45 years or older, who are at average-risk for colorectal cancer (CRC). Cologuard has been approved for use by the U.S. FDA. The performance of Cologuard was established in a cross sectional study of average-risk adults aged 50-84. Cologuard performance in patients ages 45 to 49 years was estimated by sub-group analysis of near-age groups. Colonoscopies performed for a positive result may find as the most clinically significant lesion: colorectal cancer [4.0%], advanced adenoma (including sessile serrated polyps greater than or equal to 1cm diameter) [20%] or non- advanced adenoma [31%]; or no colorectal neoplasia [45%]. These estimates are derived from a prospective cross-sectional screening study of 10,000 individuals at average risk for colorectal cancer who were screened with both Cologuard and colonoscopy. (Beverly Ding, N Engl J Med 2014;370(14):4610-5009.) Cologuard may produce a false negative or false positive result (no colorectal cancer or precancerous polyp present at colonoscopy follow up). A negative Cologuard test result does not guarantee the absence of CRC or advanced adenoma (pre-cancer). The current Cologuard screening interval is every 3 years. ([place] Cancer Society and U.S. Multi-Society Task Force). Cologuard performance data in a 10,000 patient pivotal study using colonoscopy as the reference method can be accessed at the following location: www.Obsorb.Picapica/results. Additional description of the Cologuard test process, warnings and precautions can be found at www.cologuard.com. Stool 03/08/2023 9:00 AM CADASTRAL SURVEYOR 03/09/2023 3:06 PM CADASTRAL SURVEYOR Jyothi [facility]BER [facility] BODY FLUIDS AND STOOLS ORDERABLES Final Result [facility] (CLIA #:[id number]) [address] [place] [address] * HM MAMMOGRAPHY (04/19/2022) Cassy Melvin NP [facility] Edited Result - Final from Last 3 Months or Most Recently Relevant to Health Maintenance Insurance [facility] Care Teams Motor Rebuilder Relationship Specialty Start Date End Date Jyothi Patton PA [address] [facility] [address] [place] [address] PCP - General Internal Medicine 07/31/18
--- OUTSIDE RECORDS SUMMARY | 2024-12-22 16:02 | XMS_ITS | Encounter Summary ---
Author Organization [facility] Healthcare Address [address] [place] [address] Care Team Providers Care Environmental Compliance Manager Name Role Phone Jyothi Patton Primary Care Provider [phone]- [phone] Encounter Details Date Type Department Care Team (Latest Contact Info) Description 10/20/2024 Results Follow-Up [facility] Medical Group Family Medicine [address] [place] [address] Jyothi Patton PA [address] [facility] [address] [place] [address] MMR (IGG) PANEL (MEASLES, MUMPS, RUBELLA), CBC with auto differential, Comprehensive metabolic panel, Additional followed-up results: 5 Social History Tobacco Use Types Packs/Day Years Used Date Smoking Tobacco: Never Smokeless Tobacco: Never Alcohol Use Standard Drinks/Week Comments No 0 [...] on file Legal Sex Female 9:21 AM LOAN REVIEWER Gender Identity Female 05/11/2020 9:43 AM LOAN REVIEWER Sexual Orientation Straight 05/11/2020 9: 43 AM LOAN REVIEWER documented as of this encounter Plan of Treatment Not on file documented as of this encounter Visit Diagnoses Not on filedocumented in this encounter Care Teams Environmental Compliance Manager Relationship Specialty Start Date End Date Jyothi Patton PA [address] [facility] [address] [place] [address] PCP - General Internal Medicine 07/31/18 documented as of this encounter
--- OUTSIDE RECORDS SUMMARY | 2024-12-22 16:02 | XMS_ITS | Clinical Summary ---
Author Organization [facility] Care Team Providers Care Business Practices Supervisor Name Role Phone Unavailable Primary Care Provider Unavailabl e Social History Tobacco Use Types Packs/Day Years Used Date Smoking Tobacco: Never Assessed Comments Unknown Sex and Gender Information Value Date Recorded Sex Assigned at Not on file Legal Sex Female 5:39 PM CDT Gender Identity Not on file Sexual Orientation Not on file Plan of Treatment Health Maintenance Due Date Last Done Comments Hepatitis C Virus (HCV) Screening 1965 TdaP Immunization 1965 Pap Smear 08/28/1984 Cervical Cancer Screening (CCS) 08/28/1993 HPV/Cotest 08/28/1993 Cologuard 08/28/2008 Colonoscopy 08/28/2008 Colorectal Cancer Screening 08/28/2008 Immunochemical Fecal Occult Blood 08/28/2008 Pneumococcal Immunization (5 0+ years) (1 of 1 - PCV) 08/28/2013 Zoster Immunization (1 of 2) 08/28/2013 SARS-COV-2 Immunization ( season) 2023 03/15/2021, 08/04/2020, 07/14/2020 Influenza Immunization (#1) 11/30/202401/30, 01/28/2019, 01/08/2018 Respiratory Syncytial Virus (RSV) Immunization (Adult) (1 - 1-dose 75+ series) 08/28/2038 Hepatitis B Immunization Aged Out No longer eligible based on patient's age to complete this topic Human Papillomavirus (HPV) Immunization Aged Out No longer eligible b ased on patient's age to complete this topic Meningococcal Immunization (ACWY) Aged Out No longer eligible b ased on patient's age to complete this topic Rotavirus Immunization Aged Out No lo nger eligible based on patient's age to complete this topic
--- OUTSIDE RECORDS SUMMARY | 2024-12-22 16:02 | XMS_ITS | Clinical Summary ---
Author Organization [facility] Address [facility] [place] [address] Care Team Providers Care Ensemble Member Name Role Phone Jyothi Patton Primary Care Provider [phone] Allergies Active Allergy Reactions Criticality Noted Date Comments Ashish Inhibitors GI Upset 11/09/2023 Erythromycin Rash Low 11/09/2023 Medications No known medications Social History Tobacco Use Types Packs/Day Years Used Date Smoking Tobacco: Never Smokeless Tobacco: Never Tobacco Cessation:Counseling Given: Not Answered Alcohol Use Standard Drinks/Week Comments Not Currently 0 (1 standard drink = 0.6 oz pur e alcohol) Comments No Sex and Gender Information Value Date Recorded Sex Assigned at Not on file Legal Sex Female 5:57 PM CDT Gender Identity Not on file Sexual Orientation Not on file Last Filed Vital Signs Vital Sign Reading Time Taken Comments Blood Pressure 154/88 11/09/2023 2:28 PM CDT Pulse 72 11/09/2023 2:28 PM CDT Temperature 36.6 C (97.8 F) 11/09/2023 2:28 PM CDT Respiratory Rate 17 11/09/2023 2:28 PM CDT Oxygen Saturation 99% 11/09/2023 2:28 PM CDT Inhaled Oxygen Concentration - - Weight 113.4 kg (250 lb) 11/09/2023 2:28 PM CDT Height 172.7 cm (5' 8) 11/09/2023 2:28 PM CDT Body Mass Index 38.01 11/09/2023 2:28 PM CDT Plan of Treatment Health Maintenance Due Date Last Done Comments Colorectal Cancer Screening Colonoscopy (10 Years) 1965 Annual Physical 08/28/1966 Hepatitis C 08/28/1981 Mammogram Screening 2003 Pneumococcal Vaccine: 50+ Years (1 of 1 - PCV) 08/28/2013 Zoster Vaccines (1 of 2) 08/28/2013 Cervical Cancer Screening Pap Smear (Age 30 to 64) Every 3 Years 01/24/2020 01/23/2017 Cervical Cancer Screening Pap with HPV Testing (Age 30 to 64) Every 5 Years 01/23/2022 01/23/2017 Cervical Cancer Screening with HPV 01/23/2022 COVID-19 Vaccine ( - season) 2024 03/04/2022, 03/15/2021, 08/04/2020, Additional history exists DTaP, Tdap and Td Vaccines (2 - Tdap) 10/31/2026 10/31/2016 RSV Immunization or 60+ Years (1 - 1-dose 75+ series) 08/28/2038 Meningococcal B Vaccine Aged Out No l onger eligible based on patient's age to complete this topic Meningococcal Vaccine Aged Out No kvng hira eligible based on patient's age to complete this topic RSV Immunizations Under 20 Months Aged Out No longer eligible based on patient's age to complete this topic Insurance [facility] Care Teams Ensemble Member Relationship Specialty Start Date End Date Jyothi Patton PA [address] [place] [address] PCP - General PHYSICIAN EMT 11/09/23
--- OUTSIDE RECORDS SUMMARY | 2024-12-22 16:02 | XMS_ITS | Encounter Summary ---
Author Organization [facility] Healthcare Address [address] [place] [address] Care Team Providers Care Security Installer Name Role Phone Jyothi Patton Primary Care Provider [phone]- [phone] Reason for Visit * Reason Onset Date Comments Eye Irritation 09/02/2024 Encounter Details Date Type Department Care Team (Late st Contact Info) Description 09/09/2024 Nurse Triage [facility] Medical Group Family Medicine [address] [place] [address] Jyothi Patton PA [address] [facility] [address] [place] [address] Social History Tobacco Use Types Packs/Day Years [...] on file Legal Sex Female 9:21 AM ROOFER HELPER Gender Identity Female 05/11/2020 9:43 AM ROOFER HELPER Sexual Orientation Straight 05/11/2020 9: 43 AM ROOFER HELPER documented as of this encounter Miscellaneous Notes * Telephone Encounter - Eneida Carreon - 09/10/2024 1:12 PM CDT Medical Question/Miscellaneous Caller???s Concern: [facility] Calling to request the NPI on referral be updated so they may process the patient's visit. She was seen today. TAKE AWAY MAN warm- transferred to back-line. Does message need to be routed? No Reason for Warm Transfer: Referral/Order Issue: Patient or Facility staff (Facility staff=doctor's office, lab, or imaging center) is calling with request for urgent order or urgent referral issue (e.g. patient is at facility and there is an issue with order/referral missing) Practice Accepted the Warm Transfer? Yes Additional Comments If YES above, and no barriers. * Telephone Encounter - Serenity Stubbs LPN - 09/09/2024 2:48 PM CDT referral faxed and scanned into chart. * Telephone Encounter - Serenity Stubbs LPN - 09/09/2024 2:15 PM CDT Called [facility] in [place], [place]. Their fax number is [phone] * Telephone Encounter - Juanita Johns MA - 09/09/2024 11:57 AM CDT Got the [facility] referral and will fax over to [facility] in [place], had to leave a VM waiting for them to calll back with fax number. Patient has been notified. * Telephone Encounter - Alondra Pérez RN - 09/09/2024 8:39 AM CDT Reason for Conversation Eye Irritation Background Pt is a 59 y/o female with a hx of HTN calling with R eye irritation and itching x 1 week that is worse this morning. Pt states her eye is red this morning and she thinks she has an abrasion. Pt states eye is burning. Denies crusting and drainage. Denies difficulty with vision. Pt is requesting a referral to [facility] in [place]. Please contact pt at [phone]. Care advice given including eyelid cleansing, cold compresses, an antihistamine, good hand washing and to avoid touching/rubbing eyes. Pt verbalized understanding. Disposition See Today or Tomorrow in Office Reason for Disposition Red eyes present > 7 days Protocols Used Eye - [id number] * Telephone Encounter - Alondra Pérez RN - 09/09/2024 8:32 AM CDT Regarding: blood in eye, scratch ----- Message from Juliano Perdue sent at 09/09/2024 8:29 AM CDT ----- Symptom Based Call Chief Complaint(s): dark red blood discharge, scratch seen on eye right , itching Duration: 1 week, itching, today woke up blood What type of symptom(s) is the patient experiencing? Red Flag. Is the patient concerned they are experiencing a medical emergency requiring an ambulance? No Additional Comments: patient stated both eyes have been very itchy over the last week and she has been using allergy eye drops but this morning she noticed an abrasion on her right eye and its bleeding Does message need to be routed? Yes-Action Needed documented in this encounter Plan of Treatment Not on file documented as of this encounter Visit Diagnoses Not on filedocumented in this encounter Care Teams Security Installer Relationship Specialty Start Date End Date Jyothi Patton PA [address] [place] [id number] PCP - General Internal Medicine 07/31/18 documented as of this encounter
== END 2024-12-22 16:00 | disposition home or self-care (01) ==
LOC: ANHFOHIMG 16:00
PROVIDERS: PCP Physician Assistant; Visit Provider Physician Assistant
DX: Z12.31 Encounter for screening mammogram for malignant neoplasm of breast (principal)
CPT/HCPCS: 77063; 77067